=== PATIENT | male | born 2000 | race Caucasian/White ===

== ENCOUNTER 2021-02-04 16:07 | Emergency (ER) | payer MEDICAID, SELFPAY ==
--- NOTE | 2021-02-04 | ECG_ITS ---
Test Reason : CHEST PAIN Blood Pressure : / mmHG Vent. Rate : 061 BPM Atrial Rate : 061 BPM P-R Int : 148 ms QRS Dur : 082 ms QT Int : 372 ms P-R-T Axes : 051 018 038 degrees QTc Int : 374 ms Normal sinus rhythm Normal ECG No previous ECGs available Referred By: Generic ED Physician Electronically Signed By:SANTHOSH CLEMENTS MD
[2021-02-04 16:11] VITALS: BP 141/82; PULSE 91; RESP 16; TEMP 36.8; O2SAT 99; BMI 39.5
== END 2021-02-04 16:41 | disposition left against medical advice (07) ==
PROVIDERS: Emergency Provider Emergency Medicine; PCP Pediatrics Adolescent Medicine
DX: R07.9 Chest pain, unspecified (principal); R00.1 Bradycardia, unspecified
CPT/HCPCS: 93005; 99283

== ENCOUNTER 2023-03-24 05:43 | Emergency (ER) | payer OTHER, SELFPAY ==
[2023-03-24 05:54] VITALS: BP 144/83; PULSE 78; RESP 18; TEMP 36.8; O2SAT 98; BMI 35.9
--- OUTSIDE RECORDS SUMMARY | 2023-03-24 06:05 | XMS_ITS | Continuity of Care Document ---
Author Name Unknown Organization [facility] Address [address] [place] [address]- Care Team Providers Care Electrostatic Painter Name Role Phone Jameson LADD, Shanell Manriquez Primary Care Physici an Encounter [facility] Date(s): 05/10/20 - 06/09/20 [facility] [address] [place] [address]- [facility] Allergies, Adverse Reactions, Alerts Substance Reaction Severity Status Tylenol Active Dust Active Medications naproxen 500 mg oral tablet 1 tablet = 500 mg, By Mouth, 2 times a day, PRN as needed for pain, # 40 tablet, 0 Refills, Maintenance, 06/24/16 18:59:47, Tablet Start Date: 06/24/16 Status: Ordered Problem List Condition Effective Dates Status Health Status Inform ant Childhood obesity(Confirmed) Active Fatty liver(Confirmed) Active Gynecomastia(Confirmed) Active Vitamin D deficiency(Confirmed) Active Social History Social History Type Response Smoking Status Never smoker entered on: 06/15/15 Sex
--- OUTSIDE RECORDS SUMMARY | 2023-03-24 06:05 | XMS_ITS | Continuity of Care Document ---
Author Name Unknown Organization [facility] Address [address] [place] [address]- Care Team Providers Care Religious Education Teacher Name Role Phone Desirae BIRCH, Isaura Garcia Primary Care Physician [place] [facility] [place] - 12/[place]/21 [facility] [address] [place] [id number] Attending Physician: Kentrell Blank Admitting Physician: AdmtrKentrell Referring Physician: AdmtrKentrell Allergies, Adverse Reactions, Alerts Substance Reaction Severity Status Tylenol Active Dust Active Immunizations Given and Recorded Vaccine Date Status Refusal Reason tetanus/diphtheria/pertussis, acel(Tdap) 12/03/21 Given Medications albuterol CFC free 90 mcg/inh inhalation aerosol 1, puffs, Inhalation, 4 times a day, PRN, # 18 Gm, Refills 0, Tot. Refills 0, Maintenance, 12/03/2214:35:00 EST, Aerosol, Route to Pharmacy Electronically, [id number], [facility]/pharmacy #[id number], 169.5, cm, 12/03/21 14:47:00 EST, He... Start Date: 12/03/21 Status: Ordered Flovent HFA 110 mcg/inh inhalation aerosol 2 puffs, Inhalation, 2 times a day, # 12 Gm, 0 Refills, Maintenance, 12/03/21 15:35:00 EST, Aerosol, [id number], Partial fill upon patient request if the prescription is for a schedule II opioid drug., 169.5, cm, 12/03/21 14:47:00 EST, Height Start Date: 12/03/21 Status: Ordered Magnesium Amino Acids Chelate By Mouth, 0 Refills, Maintenance, 08/03/20 8:56:00 EDT Start Date: 08/03/20 Status: Ordered MiraLax oral powder for reconstitution = 17 Gm, By Mouth, Daily, for 30 days, dissolve in water before taking, # 510 Gm, 0 Refills, Acute 01/02/22 15:36:00 EDT, 12/03/21 15:36:00 EST, REC Powder, [facility]/pharmacy #[id number], Partial fill upon patient request if the prescription is for a schedule II... Start Date: 12/03/21 Stop Date: 01/02/22 Status: Ordered naproxen 500 mg oral tablet 1 tablet = 500 mg, By Mouth, 2 times a day, PRN as needed for pain, # 40 tablet, 0 Refills, Maintenance, 06/24/16 18:59:47, Tablet Start Date: 06/24/16 Status: Ordered Problem List Condition Effective Dates Status Health Status Inform ant Childhood obesity(Confirmed) Active Fatty liver(Confirmed) Active Gynecomastia(Confirmed) Active Obese class II(Confirmed) Active Vitamin D deficiency(Confirmed) Active Social History Social History Type Response Smoking Status Never (less than 100 in lifetime) entered on: 12/03/21 Sex
--- OUTSIDE RECORDS SUMMARY | 2023-03-24 06:05 | XMS_ITS | Continuity of Care Document ---
Author Name Unknown Organization [facility] Adult Medicine Address [address] [place] [address]- Care Team Providers Care Executive Receptionist Name Role Phone Desirae BIRCH, Isaura Garcia Primary Care Physician Encounter [facility] [place] Date(s): 11/27/21 - 12/29/21 [facility] [address] [place] [id number] Attending Physician: Jay Reeves MD Admitting Physician: Jay Reeves MD Allergies, Adverse Reactions, Alerts Substance Reaction Severity Status Tylenol Active Dust Active Immunizations Given and Recorded Vaccine Date Status Refusal Reason tetanus/diphtheria/pertussis, acel(Tdap) 12/03/21 Given Medications albuterol CFC free 90 mcg/inh inhalation aerosol 1, puffs, Inhalation, 4 times a day, PRN, # 18 Gm, Refills 0, Tot. Refills 0, Maintenance, 12/03/2214:35:00 EST, Aerosol, Route to Pharmacy Electronically, [id number], [facility]/pharmacy #[id number], 169.5, cm, 12/03/21 14:47:00 EST, He... [...] 15:36:00 EDT, 12/03/21 15:36:00 EST, REC Powder, [facility]/pharmacy #[id number], Partial fill upon patient request if the [...]
--- OUTSIDE RECORDS SUMMARY | 2023-03-24 06:05 | XMS_ITS | Continuity of Care Document ---
Author Name Unknown Organization [facility] Address [address] [place] [address]- Care Team Providers Care Advertising Coordinator Name Role Phone Desirae BIRCH, Isaura Garcia Primary Care Physician [phone] Encounter [facility] [place] Date(s): 11/27/21 - 12/27/21 [facility] [address] [place] [id number] Allergies, Adverse Reactions, Alerts Substance Reaction Severity Status Tylenol Active Dust Active Immunizations Given and Recorded Vaccine Date Status Refusal Reason tetanus/diphtheria/pertussis, acel(Tdap) 12/03/21 Given Medications albuterol CFC free 90 mcg/inh inhalation aerosol 1, puffs, Inhalation, 4 times a day, PRN, # 18 Gm, Refills 0, Tot. Refills 0, Maintenance, 12/03/2214:35:00 EST, Aerosol, Route to Pharmacy Electronically, [id number], [facility]/pharmacy #[id number], 169.5, cm, 12/03/21 14:47:00 EST, He... [...] EDT, 12/03/21 15:36:00 EST, REC Powder, [facility]/pharmacy #[id number], Partial fill upon patient request if the [...]
--- OUTSIDE RECORDS SUMMARY | 2023-03-24 06:05 | XMS_ITS | Continuity of Care Document ---
Author Name Unknown Organization [facility] Address [address] [place] [address]- Care Team Providers Care Database Administration Associate Name Role Phone Desirae BIRCH, Isaura Garica Primary Care Physician En[place] [facility] [place] Date(s): 12/03/21 - 01/31/[address] [address]- Attending Physician: Theresa Valenzuela MD Admitting Physician: Theresa Valenzuela MD Referring Physician: Bull Olvera NP Allergies, Adverse Reactions, Alerts Substance Reaction Severity Status Tylenol Active Dust Active Immunizations Given and Recorded Vaccine Date Status Refusal Reason tetanus/diphtheria/pertussis, acel(Tdap) 12/03/21 Given Medications Flovent HFA 110 mcg/inh inhalation aerosol 2 puffs, Inhalation, 2 times a day, # 12 each, 2 Refills, [facility] 55827, 169.5, cm, 12/03/21 14:47:00 EST, Height Start Date: 01/01/22 Status: Ordered Magnesium Amino Acids Chelate By Mouth, 0 Refills, Maintenance, 08/03/20 8:56:00 EDT Start Date: 08/03/20 Status: Ordered naproxen 500 mg oral tablet 1 tablet = 500 mg, By Mouth, 2 times a day, PRN as needed for pain, # 40 tablet, 0 Refills, Maintenance, 06/24/16 18:59:47, Tablet Start Date: 06/24/16 Status: Ordered ProAir HFA 90 mcg/inh inhalation aerosol with adapter 1, puffs, Inhalation, 4 times a day, PRN, # 8.5 each, Refills 1, Route to Pharmacy Electronically, [id number], [facility], 169.5, cm, 12/03/21 14:47:00 EST, Height Start Date: 01/01/22 Status: Ordered Problem List Condition Effective Dates Status Health Status Inform ant Childhood obesity(Confirmed) Active Fatty liver(Confirmed) Active Gynecomastia(Confirmed) Active Obese class II(Confirmed) Active Vitamin D deficiency(Confirmed) Active Social History Social History Type Response Smoking Status Never (less than 100 in lifetime) entered on: 12/03/21 Sex
--- OUTSIDE RECORDS SUMMARY | 2023-03-24 06:05 | XMS_ITS | Continuity of Care Document ---
Author Name Unknown Organization [facility] ter Address [address] [place] [address]- Care Team Providers Care Excavation Laborer Name Role Phone Jameson LADD, Shanell Manriquez Primary Care Physici an En[place] [facility] [place] Date(s): 10/05/19 - 10/05/[address] [address]- [facility] Attending Physician: Not on Staff, Attending MD Allergies, Adverse Reactions, Alerts Substance Reaction [...]
--- OUTSIDE RECORDS SUMMARY | 2023-03-24 06:05 | XMS_ITS | Continuity of Care Document ---
Author Name Unknown Organization [facility] ter Address [address] [place] [address]- Care Team Providers Care Heavy Truck Mechanic Name Role Phone Desirae BIRCH, Isaura Garcia Primary Care Physician [phone] Encounter [facility] [place] Date(s): 12/04/21 - 02/01/[address] [address] Attending Physician: Bull Olvera NP Admitting Physician: Bull Olvera NP Referring Physician: Bull Olvera NP Allergies, Adverse Reactions, Alerts Substance Reaction Severity Status Tylenol Active Dust Active Immunizations Given and Recorded Vaccine Date Status Refusal Reason tetanus/diphtheria/pertussis, acel(Tdap) 12/03/21 Given Medications Flovent HFA 110 mcg/inh inhalation aerosol 2 puffs, Inhalation, 2 times a day, # 12 each, 2 Refills, [facility] 07276, 169.5, cm, 12/03/21 14:47:00 EST, Height Start [...] each, Refills 1, Route to Pharmacy Electronically, [id number], [facility], 169.5, cm, 12/03/21 14:47:00 EST, Height Start Date: 01/01/22 Status: Ordered Problem List Condition Effective Dates Status Health Status Inform ant Childhood obesity(Confirmed) Active Fatty liver(Confirmed) Active Gynecomastia(Confirmed) Active Obese class II(Confirmed) Active Vitamin D deficiency(Confirmed) Active Social History Social History Type Response Smoking Status Never (less than 100 in lifetime) entered on: 12/03/21 Sex
--- OUTSIDE RECORDS SUMMARY | 2023-03-24 06:05 | XMS_ITS | Continuity of Care Document ---
Author Name Unknown Organization [facility] ter Address [address] [place] [address]- Care Team Providers Care Mr Teacher Name Role Phone Desirae BIRCH, Isaura Garcia Primary Care Physician [place] [facility] [place] - 02/23/[address] [address] Attending Physician: Bull Olvera NP Admitting Physician: Bull Olvera NP Referring Physician: Bull Olvera NP Allergies, Adverse Reactions, Alerts Substance Reaction Severity Status Tylenol Active Dust Active Immunizations Given and Recorded Vaccine Date Status Refusal Reason tetanus/diphtheria/pertussis, acel(Tdap) 12/03/21 Given Medications Flovent HFA 110 mcg/inh inhalation aerosol 2 puffs, Inhalation, 2 times a day, # 12 each, 2 Refills, [facility] 92814, 169.5, cm, 12/03/21 14:47:00 EST, Height Start [...] each, Refills 1, Route to Pharmacy Electronically, [id number], [facility], 169.5, cm, 12/03/21 14:47:00 EST, Height Start Date: 01/01/22 Status: Ordered Problem List Condition Effective Dates Status Health Status Inform ant Childhood obesity(Confirmed) Active Fatty liver(Confirmed) Active Gynecomastia(Confirmed) Active Obese class II(Confirmed) Active Vitamin D deficiency(Confirmed) Active Social History Social History Type Response Smoking Status Never (less than 100 in lifetime) entered on: 12/03/21 Sex
--- OUTSIDE RECORDS SUMMARY | 2023-03-24 06:05 | XMS_ITS | Continuity of Care Document ---
Author Name Unknown Organization [facility] Address [address] [place] [address]- Care Team Providers Care Laborer Car Barn Name Role Phone Desirae BIRCH, Isaura Garcia Primary Care Physician Encounter [facility] [place] Date(s): 12/03/21 - 02/02/[address] [address]- Attending Physician: Elvis Cortes OD Admitting Physician: Elvis Cortes OD Referring Physician: Bull Olvera NP Allergies, Adverse Reactions, Alerts Substance Reaction Severity Status Tylenol Active Dust Active Immunizations Given and Recorded Vaccine Date Status Refusal Reason tetanus/diphtheria/pertussis, acel(Tdap) 12/03/21 Given Medications Flovent HFA 110 mcg/inh inhalation aerosol 2 puffs, Inhalation, 2 times a day, # 12 each, 2 Refills, [facility] 23927, 169.5, cm, 12/03/21 14:47:00 EST, Height Start [...] each, Refills 1, Route to Pharmacy Electronically, [id number], [facility] 57164, 169.5, cm, 12/03/21 14:47:00 EST, Height Start Date: 01/01/22 Status: Ordered Problem List Condition Effective Dates Status Health Status Inform ant Childhood obesity(Confirmed) Active Fatty liver(Confirmed) Active Gynecomastia(Confirmed) Active Obese class II(Confirmed) Active Vitamin D deficiency(Confirmed) Active Social History Social History Type Response Smoking Status Never (less than 100 in lifetime) entered on: 12/03/21 Sex
--- OUTSIDE RECORDS SUMMARY | 2023-03-24 06:05 | XMS_ITS | Continuity of Care Document ---
Author Name Unknown Organization [facility] Address [address] [place] [address]- Care Team Providers Care Life Management Teacher Name Role Phone Desirae BIRCH, Isaura Garcia Primary Care Physician Encounter [facility] [place] Date(s): 01/01/22 - 01/31/[address] [address]- Attending Physician: AdmKentrell [place] Admitting Physician: Admtr, Ar8 Referring Physician: Admtr, Ar8 Allergies, Adverse Reactions, Alerts Substance Reaction Severity Status Tylenol Active Dust Active Immunizations Given and Recorded Vaccine Date Status Refusal Reason tetanus/diphtheria/pertussis, acel(Tdap) 12/03/21 Given Medications Flovent HFA 110 mcg/inh inhalation aerosol 2 puffs, Inhalation, 2 times a day, # 12 each, 2 Refills, [facility] 31618, 169.5, cm, 12/03/21 14:47:00 EST, Height Start [...] each, Refills 1, Route to Pharmacy Electronically, [id number], [facility] 02783, 169.5, cm, 12/03/21 14:47:00 EST, Height Start Date: 01/01/22 Status: Ordered Problem List Condition Effective Dates Status Health Status Inform ant Childhood obesity(Confirmed) Active Fatty liver(Confirmed) Active Gynecomastia(Confirmed) Active Obese class II(Confirmed) Active Vitamin D deficiency(Confirmed) Active Social History Social History Type Response Smoking Status Never (less than 100 in lifetime) entered on: 12/03/21 Sex
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
[2023-03-24] MEDS: Ibuprofen 800 MG TABLET PO (06:15)
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
== END 2023-03-24 06:57 | disposition home or self-care (01) ==
PROVIDERS: Emergency Provider Emergency Medicine Emergency Medical Services; PCP Pediatrics Adolescent Medicine
DX: Z04.1 Encounter for examination and observation following transport accident (principal)
CPT/HCPCS: 99283; 99284

== ENCOUNTER 2023-08-22 16:33 | Emergency (ER) | payer OTHER, SELFPAY ==
[2023-08-22 17:30] VITALS: BP 141/85; PULSE 54; RESP 18; TEMP 36.3; O2SAT 97; BMI 34.5
--- NOTE | 2023-08-22 17:30 | ED.ABDPAIN ---
HPI - Abdominal Pain General Chief Complaint: Abdominal Pain Stated Complaint: Vomiting 2x days Time Seen by Provider: 08/22/23 17:46 Source: patient Mode of arrival: ambulatory Limitations: no limitations History of Present Illness HPI narrative: 22-year-old male who presents emergency department for evaluation of vomiting, onset 2 days ago after eating a subway sandwich. Patient states that today his vomiting has gotten worse. Patient states that today he has been vomiting and retching. Patient did vomit up blood earlier today. At triage she vomited bilious material that was blood tinged, proximally 500 cc. Patient states he is having severe pain any points to his throat and epigastric area when asked to localize the pain. Describes the pain is a burning sensation. The pain is 10/10. Patient states he has been constipated has not had any diarrhea. Patient denies smoking marijuana. Patient was evaluated and triaged brought back to a room, when he went into the room the patient is retching, he did vomit bilious material that is red. He appears to be in distress secondary to his throat and abdominal pain. Related Data Previous Rx's Medication Instructions Recorded cyclobenzaprine 5 mg tablet 5 mg PO TID PRN muscle spasm 7 03/24/23 days #21 tabs omeprazole 20 mg capsule,delayed 20 mg PO DAILY 30 days #30 caps 08/22/23 release ondansetron 4 mg disintegrating 4 mg PO Q6-8H PRN nausea and 08/22/23 tablet vomiting #14 tabs Allergies Allergy/AdvReac Type Severity Reaction Status Date / Time acetaminophen [From TYLENOL] Allergy Mild RASH Verified 08/22/23 17:30 Review of Systems Review of Systems Yes all other systems are reviewed and are negative [facility] Past Medical History [facility] Narrative: Past medical history: None. Surgical history: None. Social history: Patient denies tobacco, alcohol and drug use specifically denies smoking marijuana. Medical History No known health problems Social History Social History Alcohol intake: never Smoked in Last 30 Days: No Use of substances other than those prescribed or required for medical reasons: No Advance Directives: No Advance Directives Information Provided: No Physical Exam ED Vital Signs: Vital Signs - 24 hr 08/22/23 17:30 Temperature 97.4 F Pulse Rate 54 Respiratory Rate 18 Blood Pressure 141/85 H Pulse Oximetry 97 Oxygen Delivery Method Room Air BMI result Body Mass Index 34.5 Vital signs did reveal an elevated blood pressure of 141 over 85 with a low heart rate of 54 pain Exam General: Awake, alert, appears to be in distress secondary to retching and vomiting Head: Normocephalic, atraumatic EENT: PERRL, Lids normal, sclera normal, conjunctiva normal, nose normal , ears normal, throat without erythema or exudates Neck: Supple, no adenopathy, no trachea midline or C-spine tenderness Lung: breath sounds symmetric, no wheezing, rales or rhonchi Chest: symmetric movement, nontender Heart: regular rate and rhythm, normal S1, S2 no murmurs or rubs Abdomen: soft, moderate epigastric tenderness nondistended, normal bowel sounds Back: no vertebral tenderness, no CVAT Extremities: no deformities, moves all extremities symmetrically Skin: no rashes, no lesion, normal color and warmth Neuro: Awake, alert, oriented, normal speech, cranial nerves intact, moves all extremities symmetrically Psych: Anxious, cooperative Course Course Course Narrative: This is an RME: Additional HPI, ROS, PE not included below will be deferred to primary provider. Patient is a 22-year-old male who presents emergency department for evaluation of vomiting, onset 2 days ago after eating a subway sandwich. Increased vomiting since earlier today, cant keep down and solids or liquids, this evening with dark red bloody emesis, visualized upon arrival approx 500mL, has pain with swallowing, Epigastric pain, constipated x 1 week. Denies drug or alcohol usage. Denies history of this in the past. Plan: labs, ondansetron, spokewith transmitter engineer in chargeCesia, Patient to be brought back to a room for upper GIB Medical Decision Making Medical Decision Making MDM Narrative: 22-year-old male who presents emergency department for evaluation of vomiting, onset 2 days ago after eating a subway sandwich, patient has hematemesis this morning, he continues to retch and vomit and in the emergency department he had 500 cc of blood tinged emesis. He is complaining of throat pain and epigastric pain. Patient was only retching here in the emergency department, emesis was bilious and blood tinged. Exam did reveal epigastric tenderness. Following evaluation was ordered: CBC, CMP, lipase, ethanol level, urine drug screen, PT/INR, PTT, urinalysis. I ordered normal saline IV x1 L, morphine 4 mg IV for his pain, regular 10 mg and Benadryl 50 mg IV for his nausea and vomiting. 19:29 Patient's laboratory evaluation revealed no significant anemia which is reassuring, electrolyte abnormalities are consistent with vomiting. Patient's tox screen was positive for THC. Symptoms are most likely caused by a viral gastritis however cannabis hyperemesis syndrome needs be considered. Patient may also have a small Tory-Holt tear secondary to his severe retching. Patient was given a GI cocktail of Maalox, viscous lidocaine and with improvement of his symptoms as well. Patient was discharged home with prescriptions for Zofran ODT 4 mg every 6-8 hours as needed for nausea and vomiting and Prilosec 20 mg once a day for 1 month. He was advised to stay on a lilliana diet for the next 24 hours, he was given printed and verbal instructions and discharged home. Differential Diagnosis Differential Diagnoses: The differential diagnosis associated with the presentation includes Differential diagnosis includes was not limited to upper GI bleed, gastritis, esophagitis, Tory-Holt tear, esophageal perforation, cannabis hyperemesis syndrome, anemia, electrolyte abnormality Admission/Observation Consideration of admission/observation: Escalation of care including admission/observation considered Lab Data MDM Lab Attestation statement: I reviewed the patient's lab results. My interpretation patient's laboratory evaluation as follows: WBC elevated 14,700. No anemia with an H&H of 18 and 51.8. Potassium low 3.2. Bicarb high 36 chloride low 93. LFTs normal. Lipase normal. ETOH below detectable limits. Urine tox screen positive for THC. 08/22/23 18:07 08/22/23 18:07 Labs: Lab Results 08/22/23 08/22/23 Range/Units 18:07 18:14 WBC 14.7 H (4.8-10.8) X10*3/uL RBC 6.45 H (4.60-5.80) X10*6/uL Hgb 18.0 (14.0-18.0) g/dl Hct 51.8 (42.0-52.0) % MCV 80.3 (80.0-98.0) fL MCH 27.9 (27.0-33.0) pg MCHC 34.7 (31.0-36.0) g/dl RDW 12.4 (11.0-16.0) % Plt Count 254 (160-400) X10*3/uL MPV 9.6 (9.4-12.4) fL Immature Gran % (Auto) 0.1 (0.0-0.4) % Neut % (Auto) 79.9 H (45-73) % Lymph % (Auto) 12.2 L (20-40) % Wayne % (Auto) 7.3 (2-11) % Eos % (Auto) 0.2 (0-4) % Baso % (Auto) 0.3 (0-2) % Lymph # (Auto) 1.8 (1.2-4.9) X10*3/uL Wayne # (Auto) 1.1 (0.1-1.2) X10*3/uL Eos # (Auto) 0.0 (0.0-0.4) X10*3/uL Baso # (Auto) 0.0 (0.0-0.2) X10*3/uL Abs Immat Gran (auto) 0.02 (0.00-0.03) X10*3/uL Absolute Neuts (auto) 11.8 H (2.0-8.3) x10*3/uL Absolute Nucleated RBC 0.000 (0.0-0.012) X10*3/uL Nucleated RBC % (auto) 0.0 (0.0-0.2) /100WBC PT 11.9 (11.1-13.3) SEC INR 1.0 (0.9-1.1) APTT 28.9 (26.0-36.4) SEC Sodium 142 (135-145) mmol/L Potassium 3.2 L (3.3-5.1) mmol/L Chloride 93 L (96-108) mmol/L Carbon Dioxide 36 H (22-29) mmol/L Anion Gap 16 (12-20) BUN 12 (9-16) mg/dL Creatinine 1.09 (0.5-1.4) mg/dL Estim Creat Clear Calc 122.6 Estimated GFR > 60 Random Glucose 115 (60-115) mg/dL Calcium 10.7 H (8.4-10.2) mg/dL Total Bilirubin 0.9 (0.0-1.0) mg/dL AST 26 (5-37) U/L ALT 29 (0-40) U/L Alkaline Phosphatase 88 (39-117) U/L Total Protein 9.2 H (6.5-8.0) g/dL Albumin 4.9 (3.5-5.0) g/dL Lipase 7 L (8-78) U/L Urine Color Yellow Urine Appearance Clear Urine pH 8.5 (5.0-9.0) Ur Specific [place] 1.020 (1.005-1.025) Urine Protein 30 (1+) H (Neg-Trace) mg/dL Urine Glucose (UA) Negative (Negative) mg/dL Urine Ketones 15 (Negative) mg/dL Urine Blood Negative (Negative) Urine Nitrite Negative (Negative) Ur Leukocyte Esterase Negative (Negative) Urine RBC 0-2 (0-2) /HPF Urine WBC 0-5 (0-5) /HPF Ur Squamous Epith Cells 0-2 (0-2) /HPF Urine Bacteria None Seen (None Seen) Hyaline Casts 0-2 (0-2) /LPF Urine Opiates Screen Not Detected (Not Detect) Urine Fentanyl Screen Not Detected (Not Detect) Ur Barbiturates Screen Not Detected (Not Detect) Ur Phencyclidine Scrn Not Detected (Not Detect) Ur Amphetamines Screen Not Detected (Not Detect) U Benzodiazepines Scrn Not Detected (Not Detect) Urine Cocaine Screen Not Detected (Not Detect) U Marijuana (THC) Screen POSITIVE H (Not Detect) Ethyl Alcohol < 10 mg/dL Blood Type O Positive Antibody Screen NEGATIVE Independent Historian Clinical information obtained from an independent historian. History obtained from or confirmed by: Spouse Prescription Management I considered prescription management with: Other (Antiemetics, H2 shantell) Medications Administered Discontinued Medications Generic Name Dose Route Start Last Admin Trade Name Freq PRN Reason Stop Dose Admin Diphenhydramine HCl 50 mg 08/22/23 17:50 08/22/23 18:14 Diphenhydramine Hcl 50 Mg/Ml Vial IVPUSH 08/22/23 17:51 50 mg ONCE STA Administration Sodium Chloride 1,000 mls @ 999 mls/hr 08/22/23 17:50 08/22/23 18:15 Ns IV 08/22/23 18:50 999 mls/hr .Q1H1M STA Administration Metoclopramide HCl 10 mg 08/22/23 17:50 08/22/23 18:14 Metoclopramide Hcl 10 Mg/2 Ml Vial IVPUSH 08/22/23 17:51 10 mg ONCE STA Administration Morphine Sulfate 4 mg 08/22/23 17:50 08/22/23 18:14 Morphine Sulfate 4 Mg/Ml Cartridge IVPUSH 08/22/23 17:51 4 mg ONCE STA Administration Protocol Ondansetron HCl 4 mg 08/22/23 17:31 08/22/23 17:35 Ondansetron Odt 4 Mg Tab.Rapdis TRANSLINGU 08/22/23 17:32 4 mg ONCE ONE Administration Discharge Plan Discharge Clinical Impression: Tory-Holt tear Gastritis Qualifiers: Gastritis type: unspecified gastritis Chronicity: acute Gastritis bleeding: with bleeding Qualified Code(s): K29.01 - Acute gastritis with bleeding Vomiting Qualifiers: Nausea presence: with nausea Patient Disposition: Home, Self-Care Instructions: Gastritis (ED) Additional Instructions: Your blood work was normal. Your symptoms are consistent with inflammation of your stomach (gastritis) Take Zofran ODT 4 mg pills, 1 pill dissolved in your mouth every 8 hours as needed for nausea and vomiting. Take Prilosec (omeprazole) 20 mg pills, 1 pill once a day for 1 month. This medication shuts off your acid production and lets the inflammation in your stomach and esophagus heal. For the next 24 hours, stay on a LILLIANA diet (bananas, rice, applesauce, tea and toast). Follow-up with your doctor in 2 days. Please return to the emergency department if your symptoms get worse or if you develop any symptoms that are concerning to you. Prescriptions: New omeprazole 20 mg capsule,delayed release(DR/EC) 20 mg PO DAILY 30 Days Qty: 30 0RF ondansetron 4 mg tablet,disintegrating 4 mg PO Q6-8H PRN (Reason: nausea and vomiting) Qty: 14 0RF No Action cyclobenzaprine 5 mg tablet 5 mg PO TID PRN (Reason: muscle spasm) 7 Days Qty: 21 0RF
[2023-08-22] MEDS: Ondansetron ODT 4 MG TAB.RAPDIS TRANSLINGU (17:35)
[2023-08-22 18:14] LABS: MANUAL DIFF FLAG NO
[2023-08-22] MEDS: Morphine Sulfate 4 MG/ML CARTRIDGE IVPUSH (18:14)
[2023-08-22] MEDS: Metoclopramide HCl 10 MG/2 ML VIAL IVPUSH (18:14)
[2023-08-22] MEDS: diphenhydrAMINE HCL 50 MG/ML VIAL IVPUSH (18:14)
[2023-08-22 18:15] LABS: Basophils Percent Auto 0.3 % (0-2); Eosinophils Percent Auto 0.2 % (0-4); Hematocrit 51.8 % (42.0-52.0); Imm Gran Abs Auto 0.02 X10*3/uL (0.00-0.03); Imm Gran Pct Auto 0.1 % (0.0-0.4); Lymphocytes Absolute Auto 1.8 X10*3/uL (1.2-4.9); Lymphocytes Percent Auto 12.2 % (20-40); Mean Corpuscular HGB Conc 34.7 g/dl (31.0-36.0); Mean Corpuscular Hemoglobin 27.9 pg (27.0-33.0); Mean Corpuscular Volume 80.3 fL (80.0-98.0); Mean Platelet Volume 9.6 fL (9.4-12.4); Monocytes Absolute Auto 1.1 X10*3/uL (0.1-1.2); Monocytes Percent Auto 7.3 % (2-11); Neutrophils Absolute Auto 11.8 x10*3/uL (2.0-8.3); Neutrophils Percent Auto 79.9 % (45-73); Platelet Count 254 X10*3/uL (160-400); Red Blood Count 6.45 X10*6/uL (4.60-5.80); Red Cell Distribution Width 12.4 % (11.0-16.0); White Blood Count 14.7 X10*3/uL (4.8-10.8)
[2023-08-22] MEDS: 0.9 % Sodium Chloride 1,000 ML 999 ML IV (18:15)
[2023-08-22 18:20] LABS: Prothrombin Time 11.9 SEC (11.1-13.3)
[2023-08-22 18:21] LABS: Appearance Urine Clear; Color Urine Yellow; Glucose Urine UA Negative (Negative); Leukocyte Esterase Urine Negative (Negative); Nitrite Urine Negative (Negative); PH 8.5 (5.0-9.0); UMIC TRIGGER UACC YES; Urine Blood Negative (Negative); Urine Ketones 15 mg/dL (Negative); Urine Protein 30 (1+) mg/dL (Neg-Trace)
--- NOTE | 2023-08-22 18:22 | PC.NURSE ---
Patidoroteon reports has been vomiting x 2 days, unable to keep food down. reports he fell in the shower 3 days ago and he started feeling nauseous after the fall. Patient denies sob or chest pain. PERRLA. Patient vomited stomach bile x 3 in ER.
[2023-08-22 18:23] LABS: Partial Thromboplastin Time 28.9 SEC (26.0-36.4)
[2023-08-22 18:25] LABS: Bacteria Urine None Seen (None Seen); Hyaline Casts Urine 0-2 /LPF (0-2); RBC Urine 0-2 /HPF (0-2); Squamous Epithelial Cell Urine 0-2 /HPF (0-2); WBC Urine 0-5 /HPF (0-5)
[2023-08-22 18:27] LABS: Amphetamine Screen Urine Not Detected (Not Detect); Barbiturates, Urine Not Detected (Not Detect); Benzodiazepines Screen Urine Not Detected (Not Detect); Cannabinoid Screen Urine POSITIVE (Not Detect); Cocaine Screen Urine Not Detected (Not Detect); Fentanyl, urine Not Detected (Not Detect); Opiate Screen Urine Not Detected (Not Detect); Phencyclidine Screen Urine Not Detected (Not Detect)
[2023-08-22 18:30] LABS: Ethanol < 10 mg/dL; Lipase 7 U/L (8-78)
[2023-08-22 18:32] LABS: Alanine Aminotransferase 29 U/L (0-40); Albumin Level 4.9 g/dL (3.5-5.0); Alkaline Phosphatase 88 U/L (39-117); Anion Gap 16 (12-20); Aspartate Amino Transferase 26 U/L (5-37); Bilirubin Total 0.9 mg/dL (0.0-1.0); Blood Urea Nitrogen 12 mg/dL (9-16); Calcium 10.7 mg/dL (8.4-10.2); Carbon Dioxide 36 mmol/L (22-29); Chloride 93 mmol/L (96-108); Creatinine Clr Calc Pharmacy 122.6; Estimated Glomerular Filt Rate > 60; Glucose Random 115 mg/dL (60-115); Potassium 3.2 mmol/L (3.3-5.1); Sodium 142 mmol/L (135-145); Total Protein 9.2 g/dL (6.5-8.0)
[2023-08-22] MEDS: Magnesium Hydrox/Alum Hydrox 30 ML ORAL.SUSP PO (19:58)
[2023-08-22] MEDS: Lidocaine HCl Viscous 2 % 15 ML SOLUTION 10 ML PO (19:58)
[2023-08-22] MEDS: PHENobarb/Hyoscy/Atropine/Scop 10 ML ELIXIR PO (19:59)
== END 2023-08-22 20:13 | disposition home or self-care (01) ==
PROVIDERS: Nurse Practitioner Family; Emergency Provider Emergency Medicine Emergency Medical Services
DX: K29.01 Acute gastritis with bleeding (principal); K22.6 Gastro-esophageal laceration-hemorrhage syndrome; R11.2 Nausea with vomiting, unspecified; Z79.899 Other long term (current) drug therapy
CPT/HCPCS: 36415; 80053; 80307; 81001; 83690; 85025; 85610; 85730; 86850; 86900; 86901; 96361; 96374; 96375; 99284; J1200; J2270; J2765

== ENCOUNTER 2024-06-08 21:02 | Emergency (ER) | payer OTHER, SELFPAY ==
--- NOTE | 2024-06-08 | ECG_ITS ---
Test Reason : chest pain Blood Pressure : / mmHG Vent. Rate : 058 BPM Atrial Rate : 058 BPM P-R Int : 158 ms QRS Dur : 088 ms QT Int : 376 ms P-R-T Axes : 041 -05 032 degrees QTc Int : 369 ms Sinus bradycardia with sinus arrhythmia Otherwise normal ECG When compared with ECG of 04-FEB-2021 16:25, No significant change was found Referred By: Generic ED Physician Electronically Signed By:REAGAN LOPEZ
[2024-06-08 21:19] VITALS: BP 130/58; PULSE 66; RESP 18; TEMP 36.7; O2SAT 99; BMI 39.8
[2024-06-08 21:38] LABS: MANUAL DIFF FLAG NO
[2024-06-08 21:39] LABS: Basophils Absolute Auto 0.1 X10*3/uL (0.0-0.2); Basophils Percent Auto 0.6 % (0-2); Eosinophils Absolute Auto 0.3 X10*3/uL (0.0-0.4); Eosinophils Percent Auto 3.3 % (0-4); Hematocrit 43.4 % (42.0-52.0); Hemoglobin 14.8 g/dl (14.0-18.0); Imm Gran Abs Auto 0.01 X10*3/uL (0.00-0.03); Imm Gran Pct Auto 0.1 % (0.0-0.4); Lymphocytes Absolute Auto 3.1 X10*3/uL (1.2-4.9); Lymphocytes Percent Auto 39.2 % (20-40); Mean Corpuscular HGB Conc 34.1 g/dl (31.0-36.0); Mean Corpuscular Hemoglobin 28.8 pg (27.0-33.0); Mean Corpuscular Volume 84.4 fL (80.0-98.0); Mean Platelet Volume 9.7 fL (9.4-12.4); Monocytes Absolute Auto 0.8 X10*3/uL (0.1-1.2); Monocytes Percent Auto 10.7 % (2-11); Neutrophils Absolute Auto 3.6 x10*3/uL (2.0-8.3); Neutrophils Percent Auto 46.1 % (45-73); Platelet Count 201 X10*3/uL (160-400); Red Blood Count 5.14 X10*6/uL (4.60-5.80); Red Cell Distribution Width 13.2 % (11.0-16.0); White Blood Count 7.9 X10*3/uL (4.8-10.8)
[2024-06-08 21:59] LABS: Anion Gap 7 (12-20); Blood Urea Nitrogen 15 mg/dL (9-16); Calcium 8.7 mg/dL (8.4-10.2); Carbon Dioxide 30 mmol/L (22-29); Chloride 110 mmol/L (96-108); Creatinine Clr Calc Pharmacy 118.7; Estimated Glomerular Filt Rate > 60; Glucose Random 96 mg/dL (60-115); Potassium 4.1 mmol/L (3.3-5.1); Sodium 143 mmol/L (135-145)
[2024-06-08 22:08] LABS: Troponin-I High Sensitivity < 2.7 ng/L (<3.5-35.0)
--- NOTE | 2024-06-08 22:57 | ED_ITS ---
HPI - Chest Pain General Chief Complaint: Chest Pain Stated Complaint: Chest pain Time Seen by Provider: 06/08/24 22:49 Source: patient and family Mode of arrival: ambulatory Limitations: no limitations History of Present Illness ED Provider: FANNIE HOFFMAN narrative: 23 yo male with no PMH no drug use here with sig life stress recently lost his cousin unexpectedly, his pet rabbit and it is the anniversary of his grandmother's . He has been crying non-stop and he is very sad. He has had chest pain all day today. No other symptoms. No hx of CAD and no risk factors. He is not on medications and has no therapist. No SI. Mom is here supporting him. He denies travel, sick contacts, hormone use. MD complaint: chest pain Onset (ago): day(s) (1) Timing of current episode: constant Prior episodes: No Onset: during rest Pain location: left chest and right chest Pain radiation: none Severity: moderate Quality: aching Relieving factors: nothing Exacerbating factors: stress Context: other (multiple life stressors) Treatment prior to arrival: none Related Data Previous Rx's ?Medication ?Instructions ?Recorded cyclobenzaprine 5 mg tablet 5 mg PO TID PRN muscle spasm 7 03/24/23 days #21 tabs omeprazole 20 mg capsule,delayed 20 mg PO DAILY 30 days #30 caps 08/22/23 release ondansetron 4 mg disintegrating 4 mg PO Q6-8H PRN nausea and 08/22/23 tablet vomiting #14 tabs hydroxyzine HCl 25 mg tablet 25 mg PO TID PRN anxiety #30 tabs 06/08/24 Allergies Allergy/AdvReac Type Severity Reaction Status Date / Time acetaminophen [From TYLENOL] Allergy Mild RASH Verified 06/08/24 21:22 Review of Systems 2 Review of Systems: Constitutional : No Weight loss, No Fever, No Chills ENT/Mouth : No sore throat, No Rhinorrhea Eyes: No Eye Pain, No Swelling Cardiovascular : pos Chest Pain, no SOB, no Dyspnea on Exertion, No Orthopnea, No Edema, No Palpitations Respiratory : No Cough, No Sputum Gastrointestinal : no Nausea, No Vomiting, No Diarrhea, No abdominal Pain, No Hematochezia, No Melena Genitourinary : No Dysuria, No Urinary Frequency Musculoskeletal : No joint pain, No Myalgias, No Joint Swelling Skin : No Skin Lesions, No rash Neuro : No Weakness, No Numbness, No Dizziness, No Headache Psych : pos Anxiety/Panic, No Depression All other systems reviewed and are negative [facility] Past Medical History Attestation statement: The following information was validated with the patient. Source: old records reviewed Medical History No known health problems Social History Social History (Updated 06/08/24 @ 23:01 by Bette Caruso DO) Alcohol intake: never Patient Tobacco Use Status: Never used Tobacco Physical Exam 2 Vital Signs: Vital Signs: Last Vital Signs Temp 98.1 F 06/08/24 21:19 Pulse 66 06/08/24 21:19 Resp 18 06/08/24 21:19 BP 130/58 L 06/08/24 21:19 Pulse Ox 99 06/08/24 21:19 O2 Del Method Room Air 06/08/24 21:19 BMI result Body Mass Index 39.8 Appearance: Alert. Oriented X3. No acute distress. Eyes: Pupils equal, round and reactive to light. ENT: Pharynx normal. Neck: Normal inspection. Neck supple. CVS: Normal heart rate and rhythm. Pulses normal. Respiratory: No respiratory distress. Breath sounds normal. Abdomen: Soft and nontender. Skin: Skin warm and dry. Normal skin color. Normal skin turgor. Extremities: No lower extremity edema. No calf ttp Neuro: Oriented X 3. No motor deficit. No sensory deficit. Medical Decision Making Medical Decision Making [facility] Narrative: 23 yo male with significant life stressors here with atypical chest pain, PERC negative, distal pulses intact - doubt dissection. He has no ACS risk factors. His EKG and 6 hr trop are negative, lungs CTAB and no infectious symptoms doubt PTX or pneumonia. At this time will refer to therapy and start on PRN atarax. Differential Diagnosis Differential Diagnoses: The differential diagnosis associated with the presentation includes atypical chest pain, anxiety, grief reaction Admission/Observation Consideration of admission/observation: Escalation of care including admission/observation considered no acute findings stable for DC Lab Data [facility] Lab Attestation statement: I reviewed the patient's lab results. 06/08/24 21:30 06/08/24 21:30 Labs: Lab Results 06/08/24 Range/Units 21:30 WBC 7.9 (4.8-10.8) X10*3/uL RBC 5.14 D (4.60-5.80) X10*6/uL Hgb 14.8 (14.0-18.0) g/dl Hct 43.4 (42.0-52.0) % MCV 84.4 (80.0-98.0) fL MCH 28.8 (27.0-33.0) pg MCHC 34.1 (31.0-36.0) g/dl RDW 13.2 (11.0-16.0) % Plt Count 201 (160-400) X10*3/uL MPV 9.7 (9.4-12.4) fL Immature Gran % (Auto) 0.1 (0.0-0.4) % Neut % (Auto) 46.1 (45-73) % Lymph % (Auto) 39.2 (20-40) % [place] % (Auto) 10.7 (2-11) % Eos % (Auto) 3.3 (0-4) % Baso % (Auto) 0.6 (0-2) % Lymph # (Auto) 3.1 (1.2-4.9) X10*3/uL [place] # (Auto) 0.8 (0.1-1.2) X10*3/uL Eos # (Auto) 0.3 (0.0-0.4) X10*3/uL Baso # (Auto) 0.1 (0.0-0.2) X10*3/uL Abs Immat Gran (auto) 0.01 (0.00-0.03) X10*3/uL Absolute Neuts (auto) 3.6 (2.0-8.3) x10*3/uL Absolute Nucleated RBC 0.000 (0.0-0.012) X10*3/uL Nucleated RBC % (auto) 0.0 (0.0-0.2) /100WBC Sodium 143 (135-145) mmol/L Potassium 4.1 (3.3-5.1) mmol/L Chloride 110 H (96-108) mmol/L Carbon Dioxide 30 H (22-29) mmol/L Anion Gap 7 L (12-20) BUN 15 (9-16) mg/dL Creatinine 1.20 (0.5-1.4) mg/dL Estim Creat Clear Calc 118.7 Estimated GFR > 60 Random Glucose 96 (60-115) mg/dL Calcium 8.7 D (8.4-10.2) mg/dL Troponin I High Sens < 2.7 (<3.5-35.0) ng/L Independent Interpretation I performed an independent interpretation of an: EKG Interpretation: Rate: 58 Rhythm: sinus bradycardia [place]: normal Normal P waves. Normal [place]. Normal QRS complex. ST T wave : inverted t wave V1, no ADOLFO qTC: 369 prior studies: no acute ischemia The study has been interpreted contemporaneously by me. . Independent Historian Clinical information obtained from an independent historian. History obtained from or confirmed by: Parent External Record Review External record reviewed: Outpatient record Prescription Management I considered prescription management with: Other (atarax) Discharge Plan Discharge Clinical Impression: Atypical chest pain, Abnormal grief reaction Patient Disposition: Home, Self-Care Instructions: Chest Pain (ED), Grief and Loss (ED) Additional Instructions: please call [facility] [place] to establish with therapy return here for any worsening symptoms or concerns take care of yourself Prescriptions: New hydroxyzine HCl 25 mg tablet 25 mg PO TID PRN (Reason: anxiety) Qty: 30 0RF No Action cyclobenzaprine 5 mg tablet 5 mg PO TID PRN (Reason: muscle spasm) 7 Days Qty: 21 0RF omeprazole 20 mg capsule,delayed release(DR/EC) 20 mg PO DAILY 30 Days Qty: 30 0RF ondansetron 4 mg tablet,disintegrating 4 mg PO Q6-8H PRN (Reason: nausea and vomiting) Qty: 14 0RF Referrals: [facility] [Outside] Stand Alone Forms: Work/School Release Print Language: Georgian
[2024-06-08] MEDS: hydrOXYzine HCL 25 MG TABLET PO (23:10)
[2024-06-08 23:17] VITALS: BP 130/58; PULSE 66; RESP 18; TEMP 36.7; O2SAT 99
== END 2024-06-08 23:18 | disposition home or self-care (01) ==
PROVIDERS: Emergency Provider Emergency Medicine
DX: R07.89 Other chest pain (principal); F43.20 Adjustment disorder, unspecified; R00.1 Bradycardia, unspecified; I49.8 Other specified cardiac arrhythmias; Z79.899 Other long term (current) drug therapy
CPT/HCPCS: 36415; 80048; 84484; 85025; 93005; 99283; 99285

== ENCOUNTER 2025-08-17 12:23 | Emergency (ER) | payer OTHER, SELFPAY ==
--- OUTSIDE RECORDS SUMMARY | 2025-08-15 22:09 | XMS_ITS | Encounter Summary ---
Author Organization [employer] Address [address] [place] [address] Care Team Providers Care Senior Physician Name Role Phone Physician, No Pcp Primary Care Provider Unavaila ble Reason for Referral * Consultation (Routine) - Closed Specialty Diagnoses / Procedures Referred By Rowan wade Referred To Contact Family Medicine Diagnoses Chest pain of unknown etiology Emelyn Waters PA [address] [place] [address] Phone: tel: fax: Referral ID Status Reason Start Date Expiration Date V isits Requested Visits Authorized [id number] Closed Specialty Services Required 08/15/2025 08/15/2026 1 1 Reason for Visit * Reason Comments Dizziness Chest Pain Encounter Details Date Type Department Care Team (Late st Contact Info) Description 08/15/2025 10:09 PM EST - 08/15/2025 10:[address] [facility] Emergency [address] [place] [id number] Chest pain of unknown etiology (Primary Dx) Discharge Disposition: Home or Self Care Social History Tobacco Use Types Packs/Day Years Used Date Smoking Tobacco: Never Assessed Sex and Gender Information Value Date Recorded Sex Assigned at Not on file Legal Sex Male 1:59 PM EST Gender Identity Not on file Sexual Orientation Not on file documented as of this encounter Last Filed Vital Signs Vital Sign Reading Time Taken Comments Blood Pressure 134/99 08/15/2025 10:06 PM EST Pulse 65 08/15/2025 10:06 PM EST Temperature 37 C (98.6 F) 08/15/2025 5:15 PM EST Respiratory Rate 16 08/15/2025 10:06 PM EST Oxygen Saturation 99% 08/15/2025 10:06 PM EST Inhaled Oxygen Concentration - - Weight 111 kg (245 lb) 08/15/2025 5:15 PM EST Height 172.7 cm (5' 8 ) 08/15/2025 5:15 PM EST Body Mass Index 37.25 08/15/2025 5:15 PM EST documented in this encounter Discharge Instructions * Discharge Instructions* FRANK Cazares - 08/15/2025 10:09 PM EST You were seen in the emergency department for chest pain. Your labs are all reassuring. We advise that you establish care with a primary care physician. Your results are reassuring and do not indicate that you need to be admitted to the hospital today.Your hospital care does not end after this visit, please follow-up with your primary care physicianand/or referred specialists as instructed. Please return to the emergency department any new or worsening symptoms. Please sign up for your MyChart for better access to your health information/results. Thank you for your visit today! * Attachments The following attachments cannot be sent through Care Everywhere. * Chest Pain (Armenian) documented in this encounter Discharge Disposition Disposition Code Departure Means Destination Comment s Home or Self Care Pt A&Ox3 at discharge with a steady and balanced gait. Discharge given by provider documented in this encounter Progress Notes * Malinda Goodwin RN - 08/15/2025 5:09 PM EST He has been having dizziness and chest pains for the past two weeks on and off. Today his tongue started to feel heavy and he felt like he was slurring. * FRANK Cazares - 08/15/2025 5:05 PM EST EMERGENCY DEPARTMENT NOTE History and Physical Patient: Jean Claude Barriga Date of : 2000 Subjective: CC: Dizziness and Chest Pain HPI: Jean Claude Barriga is a 24 y.o. male, with history listed below, who presents to ED with chief complaint of chest pain and dizziness Patient ambulates into the emergency department with a chief complaint of chest pain and dizziness.Patient states that he has been experiencing the symptoms for approximately 2 weeks. States that his symptoms come and go. Patient states that the chest pain is midsternal. Endorses radiation into the right upper extremity. Denies any previous cardiopulmonary history. Patient also endorsed swellingof the tongue earlier, but states that this is better at this time. Denies any fever or chills. Denies any any other complaints. Patient has not attempted any medications for his symptoms. Patient states that he does not have a primary care physician. Allergies listed for acetaminophen. PCP: No Pcp Physician Review of Systems Pertinent items are noted in HPI. All other systems reviewed and are negative. Medical History[1] Surgical History[2] Family History[3] Social History[4] Problem List[5] History reviewed by me. Current Medications[6] Allergies[7] Physical Exam: Vitals: 08/15/25 1715 08/15/25 2206 BP: (!) 141/91 (!) 134/99 BP Location: Left arm Right arm Patient Position: Sitting Sitting Pulse: 69 65 Resp: 16 16 Temp: 37 ??C (98.6 ??F) TempSrc: Oral SpO2: 98% 99% Weight: 111 kg (245 lb) Height: 1.727 m (68 ) General: alert and oriented, in no acute distress Head: Normocephalic, without obvious abnormality, atraumatic Neck: normal, supple, no lymphadenopathy Eyes: No gross abnormalities., EOMI, and Sclera nonicteric ENT: moist oral mucosa, no oral lesions Pulmonary: normal air exchange, no rales, no rhonchi, no wheezes, respiratory effort normal with noretractions Cardiovascular: regular rate, regular rhythm, and no murmurs detected Gastrointestinal: soft, nondistended Genitourinary: not reviewed Musculoskeletal: no joint swelling or tenderness noted, no deformities Dermatologic: Warm, well perfused, no rashes, no wounds Neurologic:Grossly nonfocal, neurologically appropriate for age, and speech normal Psych: alert,oriented, in NAD with a full range of affect, normal behavior and no psychotic features Orders placed: Orders Placed This Encounter Procedures XR Chest 2 Views CBC and differential Comprehensive metabolic panel Troponin I high sensitivity Magnesium Lipase CBC auto differential Ambulatory referral to Family Practice ECG 12 lead Labs/Data Reviewed: Recent Results (from the past 24 hours) ECG 12 lead Collection Time: 08/15/25 5:14 PM Result Value Ref Range Ventricular Rate ECG 61 BPM Atrial Rate 61 BPM P-R Interval 150 ms QRS Duration 84 ms Q-T Interval 358 ms QTc 360 ms P Wave [place] 46 degrees R [place] 10 degrees T [place] 34 degrees ECG Interpretation Normal sinus rhythm with sinus arrhythmia Normal ECG When compared with ECG of 31-JAN-2012 00:45, PREVIOUS ECG IS PRESENT Confirmed by Gray KRISHNA YUFENG ([id number]) on 08/15/2025 8:12:15 PM Comprehensive metabolic panel Collection Time: 08/15/25 7:43 PM Result Value Ref Range Sodium 138 133 - 145 mmol/L Potassium 4.0 3.5 - 5.5 mmol/L Chloride 103 96 - 110 mmol/L CO2 32 21 - 32 mmol/L Anion Gap 3 3 - 11 Glucose 97 70 - 100 mg/dL BUN 11 5 - 25 mg/dL Creatinine 1.02 0.70 - 1.30 mg/dL eGFR 105 >=60 mL/min/1.73m2 BUN/Creatinine Ratio 10.8 Calcium 9.5 8.5 - 10.5 mg/dL AST (SGOT) 19 10 - 42 unit/L ALT (SGPT) 31 10 - 60 unit/L Alkaline Phosphatase 96 42 - 121 unit/L Total Protein 7.4 6.0 - 8.0 g/dL Albumin 4.2 3.2 - 5.0 g/dL Total Bilirubin 0.5 0.0 - 1.4 mg/dL Troponin I high sensitivity Collection Time: 08/15/25 7:43 PM Result Value Ref Range High Sensitivity Troponin I 3 <=79 ng/L Magnesium Collection Time: 08/15/25 7:43 PM Result Value Ref Range Magnesium 2.3 1.9 - 2.6 mg/dL Lipase Collection Time: 08/15/25 7:43 PM Result Value Ref Range Lipase 31 13 - 75 unit/L CBC auto differential Collection Time: 08/15/25 7:43 PM Result Value Ref Range WBC 12.4 (H) 4.8 - 10.8 K/mcL RBC 6.00 (H) 4.50 - 5.50 M/mcL Hemoglobin 16.8 13.5 - 17.5 g/dL Hematocrit 50.6 42.0 - 54.0 % MCV 84.9 79.0 - 98.0 FL MCH 28.2 27.0 - 32.0 pcg MCHC 33.2 32.0 - 37.0 g/dL RDW 13.2 11.0 - 15.0 % Platelets 254 130 - 400 K/mcL MPV 10.0 7.0 - 11.0 FL NRBC 0.0 <1.0 % NRBC Absolute 0.00 <0.10 K/mcL Neutrophils Relative 64.4 % Lymphocytes Relative 23.1 % Monocytes Relative 8.6 % Eosinophils Relative 3.0 % Basophils Relative 0.6 % Immature Granulocytes Relative 0.3 % Neutrophils Absolute 7.95 (H) 1.50 - 7.00 K/mcL Lymphocytes Absolute 2.86 1.00 - 5.00 K/mcL Monocytes Absolute 1.07 (H) 0.20 - 1.00 K/mcL Eosinophils Absolute 0.37 0.00 - 0.50 K/mcL Basophils Absolute 0.08 0.00 - 0.20 K/mcL Immature Granulocytes Absolute 0.04 (H) 0.00 - 0.03 K/mcL Imaging: XR Chest 2 Views (Results Pending) Medications in ED: Medications - No data to display Procedures: Procedures Splint: none Critical Care time: none Differential DX: CAD, VA, pneumonia, costochondritis, hypertension Social determinant of health: No PCP Assessment / Plan / MDM: Jean Cladue Barriga is a 24 y.o. male, with history, as above, who presents to ED with chief complaintof Dizziness and Chest Pain After obtaining the patient's history, performing the physical exam, multiple initial diagnoses were considered based on the presenting problem. Thorough ED workup was conducted. Patient has a benignexam. Lab work was conducted. CBC displays a white blood cell count of 12.4. Patient has no infectious symptoms. Afebrile. Low suspicion for acute infection at this time. CMP is unremarkable. Lipase and magnesium within normal limits. EKG as indicated displays no immediate STEMI. Troponin negative.Wet read of chest x-ray displays no acute cardiopulmonary abnormality. Results were discussed with the patient at bedside. Patient has a low heart score. Patient was advised to establish care with a [facility] care physician and take down inspector as needed. Patient agreed with the plan and requested discharge. Red flags and reasons to return to the emergency department were discussed. Everything was thoroughly discussed with the patient or parent and all questions were answered. Patient/parent report no further questions or complaints to me. Patient or parent displayed understanding and verbalizes agreement with the plan. The patient/parent is aware that ED evaluation is not all-encompassing for all components of a medical problem and that they must follow-up as an outpatient.Patient advised to follow-up with referred providers and/or primary care physician as advised. Reasons to return to the emergency department were extensively discussed and patient is aware to return to the emergency department if experiencing new or worsening symptoms. Patient was provided a handout relevant to their care, diagnosis, and routine education materials upon discharge. Patient was discharged, in stable condition. ED Course / Continued MDM: ED Course as of 08/16/259 Mon Aug 15, 2025 2205 EKG indication chest pain My supervising physician signed off on the EKG indicating no immediate STEMI My interpretation: Normal sinus rhythm with sinus arrhythmia, 61 bpm, no ectopy [JS] ED Course User Index [JS] FRANK Cazares Clinical Impressions as of 08/16/259 Chest pain of unknown etiology DISPOSITION: Discharged, in stable condition 1. Chest pain of unknown etiology Follow up: No follow-up provider specified. Medications listed below were prescribed by myself and thoroughly discussed with the patient. Patient was advised to ask the pharmacist at pickup if any new questions arise after the ED visit. Discharge Rx: There are no discharge medications for this patient. *if narcotic medications prescribed, I have monitored for controlled parenteral medications via epic* Emelyn Moya PA-C Emergency Department Note was written utilizing [employer] voice/speech recognition technology. All efforts to correct inherent errors or omissions were attempted. Grammatical errors, random word insertions, deletions, pronoun errors and incomplete sentences are occasional consequences of this technology due to software rodriges itations. If there are questions or concerns about the content of this note or information contained within the body of this dictation, please contact the author for clarification/immediate correction. FRANK Cazares 08/15/25 2210 [1] Past Medical History: Diagnosis Date Patient denies medical problems [2] No past surgical history on file. [3] No family history on file. [4] [5] There is no problem list on file for this patient. [6] No current facility-administered medications for this encounter. No current outpatient medications on file. [7] Allergies Allergen Reactions Acetaminophen FRANK Cazares 08/16/25 0010 Cosigned by Philip Waters MD at 08/16/2025 4:06 PM EST documented in this encounter Plan of Treatment Scheduled Referrals Name Type Priority Associated Diagnoses Order Schedule Ambulatory referral to [facility] Outpatient Referral Routine 1 Occurre nces starting 08/15/2025 until 08/15/2026 documented as of this encounter Procedures Procedure Name Priority Date/Time Associated Diagnosis Comments ECG ANNOTATED 08/16/2025 XR CHEST 2 VIEWS STAT 08/15/2025 7:49 PM EST TROPONIN I HIGH SENSITIVITY STAT 08/15/2025 7:43 PM EST CBC WITH AUTO DIFFERENTIAL STAT 08/15/2025 7:43 PM EST CBC AND DIFFERENTIAL STAT 08/15/2025 7:43 PM EST MAGNESIUM STAT 08/15/2025 7:43 PM EST LIPASE STAT 08/15/2025 7:43 PM EST COMPREHENSIVE METABOLIC PANEL STAT 08/15/2025 7:43 PM EST ECG 12-LEAD STAT 08/15/2025 5:14 PM EST documented in this encounter Results * ECG-Annotated (08/16/2025) us Provider Onbase MD ECG ORDERABLES Final Result * XR Chest 2 Views (08/15/2025 7:49 PM EST) Anatomical Region Laterality Modality Body Radiographic Lupe ging 08/16/2025 7:28 AM EST Impressions 08/16/2025 7:30 AM EST No acute pneumonia or edema. -------- FINAL REPORT -------- Dictated By: Alejandro Rutherford Dictated Date: 08/16/2025 07:28 ET Assigned Physician: Alejandro Rutherford Reviewed and Electronically Signed By: Alejandro Rutherford Signed Date: 08/16/2025 07:30 ET Workstation ID: [id number] Transcribed By: Self Edit Transcribed Date: 08/16/2025 07:28 ET Narrative 08/16/2025 7:30 AM EST EXAMINATION: CHEST CLINICAL INFORMATION: Chest pain COMPARISON: Frontal view 11/13/08 TECHNIQUE: 2 views of the chest FINDINGS: Cardiac size within normal limits. No mediastinal or hilar mass. The vasculature, lungs and visualized pleural margins are within normal limits. Linear density superimposing over the lateral lower left chest may overlie the patient. Trace anterior wedging in the thoracolumbar junction region. Procedure Note Alejandro Rutherford, - 08/16/2025 EXAMINATION: CHEST CLINICAL INFORMATION: Chest pain COMPARISON: Frontal view 11/13/08 TECHNIQUE: 2 views of the chest FINDINGS: Cardiac size within normal limits. No mediastinal or hilar mass. Thevasculature, lungs and visualized pleural margins are within normallimits. Linear density superimposing over the lateral lower left chest may overliethe patient. Trace anterior wedging in the thoracolumbar junction region. IMPRESSION: No acute pneumonia or edema. -------- FINAL REPORT -------- Dictated By: Alejandro Rutherford Dictated Date: 08/16/2025 07:28 ET Assigned Physician: Alejandro Rutherford Reviewed and Electronically Signed By: Alejandro Rutherford Signed Date: 08/16/2025 07:30 ET Workstation ID: [id number] Transcribed By: Self Edit Transcribed Date: 08/16/2025 07:28 ET Emelyn MARIE IMG XR PROCEDURES Final Result * (ABNORMAL) CBC auto differential (08/15/2025 7:43 PM EST) WBC 12.4(H) 4.8 - 10.8 K/mcL LAB HEMETOLOGY METHOD 08/15/2025 8:14 PM [facility] RBC 6.00(H) 4.50 - 5.50 M/mcL LAB HEMETOLOGY METHOD 08/15/2025 8:14 PM [facility] Hemoglobin 16.8 13.5 - 17.5 g/dL LAB HEMETOLOGY METHOD 08/15/2025 8:14 PM [facility] Hematocrit 50.6 42.0 - 54.0 % LAB HEMETOLOGY METHOD 08/15/2025 8:14 PM [facility] MCV 84.9 79.0 - 98.0 FL LAB HEMETOLOGY METHOD 08/15/2025 8:14 PM [facility] MCH 28.2 27.0 - 32.0 pcg LAB HEMETOLOGY METHOD 08/15/2025 8:14 PM [facility] MCHC 33.2 32.0 - 37.0 g/dL LAB HEMETOLOGY METHOD 08/15/2025 8:14 PM [facility] RDW 13.2 11.0 - 15.0 % LAB HEMETOLOGY METHOD 08/15/2025 8:14 PM [facility] Platelets 254 130 - 400 K/mcL LAB HEMETOLOGY METHOD 08/15/2025 8:14 PM [facility] MPV 10.0 7.0 - 11.0 FL LAB HEMETOLOGY METHOD 08/15/2025 8:14 PM [facility] NRBC 0.0 <1.0 % LAB HEMETOLOGY METHOD 08/15/2025 8:14 PM [facility] NRBC Absolute 0.00 <0.10 K/mcL LAB HEMETOLOGY METHOD 08/15/2025 8:14 PM [facility] Neutrophils Relative 64.4 % LAB HEMETOLOGY METHOD 08/15/2025 8:14 PM [facility] Lymphocytes Relative 23.1 % LAB HEMETOLOGY METHOD 08/15/2025 8:14 PM [facility] Monocytes Relative 8.6 % LAB HEMETOLOGY METHOD 08/15/2025 8:14 PM [facility] Eosinophils Relative 3.0 % LAB HEMETOLOGY METHOD 08/15/2025 8:14 PM [facility] Basophils Relative 0.6 % LAB HEMETOLOGY METHOD 08/15/2025 8:14 PM [facility] Immature Granulocytes Relative 0.3 % LAB HEMETOLOGY METHOD 08/15/2025 8:14 PM [facility] Neutrophils Absolute 7.95(H) 1.50 - 7.00 K/mcL LAB HEMETOLOGY METHOD 08/15/2025 8:14 PM [facility] Lymphocytes Absolute 2.86 1.00 - 5.00 K/mcL LAB HEMETOLOGY METHOD 08/15/2025 8:14 PM [facility] Monocytes Absolute 1.07(H) 0.20 - 1.00 K/mcL LAB HEMETOLOGY METHOD 08/15/2025 8:14 PM [facility] Eosinophils Absolute 0.37 0.00 - 0.50 K/mcL LAB HEMETOLOGY METHOD 08/15/2025 8:14 PM [facility] Basophils Absolute 0.08 0.00 - 0.20 K/mcL LAB HEMETOLOGY METHOD 08/15/2025 8:14 PM EST [facility] Immature Granulocytes Absolute 0.04(H) 0.00 - 0.03 K/mcL LAB HEMETOLOGY METHOD 08/15/2025 8:14 PM EST [facility] Blood Venous blood specimen / Unknown Venipuncture / Unknown 08/15/2025 7:43 PM EST 08/15/2025 8:06 PM EST Emelyn MARIE LAB BLOOD ORDERABLES Final Res ult Performing Organization Address City/[facility]/ZIP Co de Phone Number [facility] [address] [place] [address], [place] [phone] * Lipase (08/15/2025 7:43 PM EST) Lipase 31 13 - 75 unit/L LAB CHEMISTRY METHOD 08/15/2025 8:38 PM EST [facility] Blood Venous blood specimen / Unknown Venipuncture / Unknown 08/15/2025 7:43 PM EST 08/15/2025 8:05 PM EST Emelyn MARIE LAB BLOOD ORDERABLES Final Res ult Performing Organization Address City/[facility]/ZIP Co de Phone Number [facility] [address] [place] [address], [place] [phone] * Magnesium (08/15/2025 7:43 PM EST) Magnesium 2.3 1.9 - 2.6 mg/dL LAB CHEMISTRY METHOD 08/15/2025 8:38 PM EST [facility] Blood Venous blood specimen / Unknown Venipuncture / Unknown 08/15/2025 7:43 PM EST 08/15/2025 8:05 PM EST Emelyn MARIE LAB BLOOD ORDERABLES Final Res ult [facility] [address] [place] [address], * Troponin I high sensitivity (08/15/2025 7:43 PM EST) [facility] High Sensitivity Troponin I 3 <=79 ng/L LAB CHEMISTRY METHOD 08/15/2025 8:38 PM EST [facility] Blood Venous blood specimen / Unknown Venipuncture / Unknown 08/15/2025 7:43 PM EST 08/15/2025 8:06 PM EST Narrative [facility] - 08/15/2025 8:38 PM EST High levels of biotin in samples may falsely decrease hsTroponin values. Use caution when interpreting hsTroponin results in patients taking biotin who exhibit renal impairment (eGFR <60) or in patients taking more than 20 mg/day of biotin. Emelyn MARIE LAB BLOOD ORDERABLES Final Res ult [facility] [address] [place] [address], [place] [phone] * Comprehensive metabolic panel (08/15/2025 7:43 PM EST) [facility] Sodium 138 133 - 145 mmol/L LAB CHEMISTRY METHOD 08/15/2025 8:38 PM EST [facility] Potassium 4.0 3.5 - 5.5 mmol/L LAB CHEMISTRY METHOD 08/15/2025 8:38 PM [facility] Chloride 103 96 - 110 mmol/L LAB CHEMISTRY METHOD 08/15/2025 8:38 PM EST [facility] CO2 32 21 - 32 mmol/L LAB CHEMISTRY METHOD 08/15/2025 8:38 PM [facility] Anion Gap 3 3 - 11 LAB CHEMISTRY METHOD 08/15/2025 8:38 PM [facility] Glucose 97 70 - 100 mg/dL LAB CHEMISTRY METHOD 08/15/2025 8:38 PM [facility] BUN 11 5 - 25 mg/dL LAB CHEMISTRY METHOD 08/15/2025 8:38 PM [facility] Creatinine 1.02 0.70 - 1.30 mg/dL LAB CHEMISTRY METHOD 08/15/2025 8:38 PM [facility] eGFR 105 >=60 mL/min/1. 73m2 LAB CHEMISTRY METHOD 08/15/2025 8:38 PM [facility] Comment:Calculation based on the Chronic Kidney Disease Epidemiology Collaboration (CKD-EPI) equation refit without adjustment for race. BUN/Creatinine Ratio 10.8 LAB CHEMISTRY METHOD 08/15/2025 8:38 PM [facility] Calcium 9.5 8.5 - 10.5 mg/dL LAB CHEMISTRY METHOD 08/15/2025 8:38 PM [facility] AST (SGOT) 19 10 - 42 unit/L LAB CHEMISTRY METHOD 08/15/2025 8:38 PM [facility] ALT (SGPT) 31 10 - 60 unit/L LAB CHEMISTRY METHOD 08/15/2025 8:38 PM [facility] Alkaline Phosphatase 96 42 - 121 unit/L LAB CHEMISTRY METHOD 08/15/2025 8:38 PM [facility] Total Protein 7.4 6.0 - 8.0 g/dL LAB CHEMISTRY METHOD 08/15/2025 8:38 PM [facility] Albumin 4.2 3.2 - 5.0 g/dL LAB CHEMISTRY METHOD 08/15/2025 8:38 PM [facility] Total Bilirubin 0.5 0.0 - 1.4 mg/dL LAB CHEMISTRY METHOD 08/15/2025 8:38 PM [facility] Blood Venous blood specimen / Unknown Venipuncture / Unknown 08/15/2025 7:43 PM EST 08/15/2025 8:05 PM EST Emelyn MARIE LAB BLOOD ORDERABLES Final Res ult [facility] [address] [place] [address], [place] [phone] * ECG 12 lead (08/15/2025 5:14 PM EST) Ventricular Rate ECG 61 BPM GEMUSE Atrial Rate 61 BPM GEMUSE P-R Interval 150 ms GEMUSE QRS Duration 84 ms GEMUSE Q-T Interval 358 ms GEMUSE QTc 360 ms GEMUSE P Wave [place] 46 degrees GEMUSE R [place] 10 degrees GEMUSE T [place] 34 degrees GEMUSE ECG Interpretation Normal sinus rhythm with sinus arrhythmia Normal ECG When compared with ECG of 31-JAN-2012 00:45, PREVIOUS ECG IS PRESENT Confirmed by Gray KRISHNA YUFENG ([id number]) on 08/15/2025 8:12:15 PM GEMUSE 08/15/2025 5:14 PM EST 08/15/2025 8:12 PM EST us Emelyn MARIE ECG ORDERABLES Final Result GEMUSE documented in this encounter Visit Diagnoses Diagnosis Chest pain of unknown etiology- Primary documented in this encounter Care Teams Senior Physician Relationship Specialty Start Date End Date Physician, No Pcp PCP - General 08/15/25 documented as of this encounter
--- NOTE | ~2025-08-17 | XR_ITS ---
EXAMINATION: XR CHEST CLINICAL INFORMATION: Pneumonia? COMPARISON: None available. TECHNIQUE: Frontal view of the chest was obtained. FINDINGS: No significant abnormality is noted involving the heart, lungs, mediastinum, bony thorax or soft tissues. XR/XR chest 1V IMPRESSION: Unremarkable examination. Electronically signed by: Annetta Anderson MD 08/17/2025 02:59 PM [facility]
[2025-08-17 12:37] VITALS: BP 134/64; PULSE 66; RESP 18; TEMP 36.6; O2SAT 98; BMI 38.5
--- NOTE | 2025-08-17 12:45 | ECG_ITS ---
Test Reason : chest pain/ diziness Blood Pressure : */* mmHG Vent. Rate : 49 BPM Atrial Rate : 49 BPM P-R Int : 142 ms QRS Dur : 86 ms QT Int : 388 ms P-R-T Axes : 29 -8 21 degrees QTcB Int : 350 ms Sinus bradycardia Otherwise normal ECG When compared with ECG of 08-Jun-2024 21:01, No significant change was found Referred By: Pavel Saucedo Electronically Signed By: Yohan Lopez
--- NOTE | 2025-08-17 12:51 | ED_ITS ---
HPI - General Adult General Chief complaint: Dizziness Stated complaint: Dizziness Time Seen by Provider: 08/17/25 15:28 Source: patient Mode of arrival: ambulatory Limitations: no limitations History of Present Illness ED Provider: ARA MOYA PA-C HPI narrative: 24 year old male who presents for evaluation of intermittent dizziness and chest discomfort. Reports episodes of feeling light headed, tingling to bilateral hands, chest tightness and air hunger, stating he feel as though he cannot get enough air. This occurs various times throughout the day. The last episode was on waking this morning which concerned him, prompting him to come in for evaluation. He was also evaluated for same at [facility] 2 days ago. He had an unremarkable workup and was discharged home. Patient endorses history of anxiety as a child. This was previously managed with medications however he felt as though he grew out of it . He is no longer on any medications for this. He is accompanied by his mother who was at bedside. She states that patient has a lot of recent life stressors. Patient reports symptoms have been ongoing for years. 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 Patient is also endorsing bilateral ear pain (R>L), sinus pain, and nasal congestion. Denies fever, chills, palpitations, sob, LE pain/swelling. Related Data Previous Rx's ?Medication ?Instructions ?Recorded cyclobenzaprine 5 mg tablet 5 mg PO TID PRN muscle spa sm 7 03/24/23 days #21 tabs omeprazole 20 mg capsule,delayed 20 mg PO DAILY 30 day s #30 caps 08/22/23 release ondansetron 4 mg disintegrating 4 mg PO Q6-8H PRN naus ea and 08/22/23 tablet vomiting #14 tabs hydroxyzine HCl 25 mg tablet 25 mg PO TID PRN anxiety #30 tabs 06/08/24 amoxicillin 875 mg-potassium 1 tab PO Q12H 7 days #14 tabs 08/17/25 clavulanate 125 mg tablet ciprofloxacin 0.3 %-dexamethasone 4 drp otic (ears) Q1 2H 7 days #7.5 08/17/25 0.1 % ear drops,suspension mL hydroxyzine pamoate 25 mg capsule 25 mg PO TID PRN anx iety #30 caps 08/17/25 Allergies Allergy/AdvReac Type Severity Reaction Status Date / Time acetaminophen (From TYLENOL) Allergy Mild RASH Verified 08/17/25 12:40 Review of Systems 2 Review of Systems: Yes all other systems are reviewed and are negative [facility] Past Medical History Attestation statement: The following information was validated with the patient. Source: old records reviewed and nursing notes reviewed Medical History No known health problems Social History Social History Alcohol intake: never Patient Tobacco Use Status: Never used Tobacco Smoked in Last 30 Days: No Substance Use Type: Marijuana Advance Directives: No Advance Directives Information Provided: Yes Do you have a plan to hurt others: No Plan Physical Exam ED Vital Signs: Vital Signs - 24 hr 08/17/25 12:37 08/17/25 16:56 08/17/25 17:36 Temperature 98 F 97.9 F 97.9 F Pulse Rate 66 47 L 47 L Respiratory Rate 18 18 Blood Pressure 134/64 130/72 130/72 Pulse Oximetry 98 98 98 Oxygen Delivery Method Room Air Room Air BMI result Body Mass Index 38.5 Vital signs stable General: Well appearing, in no acute distress. Skin: Warm, dry, intact. No rashes or lesions. Head: Normocephalic, atraumatic. Tender to percussion of frontal sinus. EENT: Hearing is intact b/l. Conjunctiva clear. PERRLA. EOM intact. Moist mucous membranes.? + No pain on manipulation of left pinna or tragus. No protrusion of the auricle. No mastoid tenderness, fluctuance, warmth. Left EAC without erythema, edema or discharge. TM intact without erythema, effusion, or bulging. + pain on manipulation of right pinna. No protrusion of the auricle. No mastoid tenderness, fluctuance, warmth. Right EAC erythematous and edematous, no discharge. TM intact without erythema, effusion, or bulging. Neck: Supple without LAD? Cardiac: Chest wall symmetric. RRR. No reproducible chest wall tenderness. Lungs: Normal respiratory effort without accessory muscle use. CTA bilaterally Abdomen: Soft, non-tender, non-distended. No rebound tenderness or guarding. Positive BS x4. Back: No midline spinous or paraspinal tenderness. No step off deformity. Ext: Upper and lower extremities atraumatic, without tenderness, deformity, swelling or erythema. no pitting edema, no calf tenderness. Neuro: AOx3. Normal speech. Ambulating with steady gait Course Course Course Narrative: RME: 24-year-old male presents to ED for dizziness and chest pain tolerate evaluated at [facility]. Patient states today dizziness but no chest pain. Patient states also tingling in hands. Patient denies any slurred speech facial droop paralysis of extremities. NIH score is 0. Labs EKG ordered Reevaluation(s) Reevaluation #1: CBC showing slight leukocytosis to 11 without left shift. No anemia, H and H stable. Chemistry without acute electrolyte abnormality requiring intervention. No ERIC. Liver function WNL. Troponin undetectable. BNP WNL. Chest x-ray without evidence of pneumonia, pulmonary edema or cardiomegaly. EKG showing sinus bradycardia with a rate of 49 beats per minute. On review, patient is baseline bradycardic. I also discussed this with mother at bedside who states that his low heart rate has been ongoing for years. His ekg is non ischemic. his ddimer is undetectable, I do not feel as though CTA chest is warranted. > I believe patient's symptoms are consistent with anxiety. I have given him a dose of Atarax in the ED today. Plan to send script. > he also has an external ear infection to his right ear. Exam is also concerning for a sinus infection. Will send Augmentin and Ciprodex to pharmacy for treatment. Patient has remained stable throughout ED visit today. Discussed worrisome signs and symptoms and when to return to the ED. All questions answered at this time. Patient is agreeable with disposition and stable for discharge. provided referrals to PCP and cardiology for follow up. Medications Administered Discontinued Medications Generic Name Dose Route Start Last Admin Trade Name Freq PRN Reason Stop Dose Admin Hydroxyzine HCl 25 mg 08/17/25 16:28 08/17/25 16:37 Hydroxyzine Hcl 25 Mg Tablet PO 08/17/25 16:29 25 mg ONCE ONE Administration Medical Decision Making Medical Decision Making [facility] Narrative: 24 year old male who presents for evaluation of intermittent dizziness and chest discomfort. History without high risk features (not substernal, no exertional component, not relieved with rest).? Minimal CAD risk factors (including age). Exam without evidence of volume overload. EKG without signs of active ischemia Given the timing of pain to ED presentation, plan to send single troponin to evaluate for NSTEMI. Differential diagnosis also includes anemia, electrolyte abnormality, costochondritis, msk pain, pneumonia, pleurisy, anxiety Presentation not consistent with acute PE (PERC 0), pneumothorax, thoracic aortic dissection, cardiac effusion or tamponade, myocarditis, pericarditis. Plan: labs, troponin, EKG, CXR, re-eval. I have also considered sinusitis, otitis media, otitis externa. Unlikely malignant otitis externa, mastoiditis. Differential Diagnosis Differential Diagnoses: The differential diagnosis associated with the presentation includes as above. Admission/Observation not indicated. Lab Data MDM Lab Attestation statement: I reviewed the patient's lab results. as above. 08/17/25 13:15 08/17/25 13:15 Labs: Lab Results 08/17/25 Range/Units 13:15 WBC 11.0 H (4.8-10.8) X10*3/uL RBC 6.08 H (4.60-5.80) X10*6/uL Hgb 17.3 (14.0-18.0) g/dl Hct 51.4 (42.0-52.0) % MCV 84.5 (80.0-98.0) fL MCH 28.5 (27.0-33.0) pg MCHC 33.7 (31.0-36.0) g/dl RDW 13.0 (11.0-16.0) % Plt Count 231 (160-400) X10*3/uL MPV 9.7 (9.4-12.4) fL Immature Gran % (Auto) 0.3 (0.0-0.4) % Neut % (Auto) 70.6 (45-73) % Lymph % (Auto) 17.9 L (20-40) % Edmunds % (Auto) 8.2 (2-11) % Eos % (Auto) 2.5 (0-4) % Baso % (Auto) 0.5 (0-2) % Lymph # (Auto) 2.0 (1.2-4.9) X10*3/uL Edmunds # (Auto) 0.9 (0.1-1.2) X10*3/uL Eos # (Auto) 0.3 (0.0-0.4) X10*3/uL Baso # (Auto) 0.1 (0.0-0.2) X10*3/uL Abs Immat Gran (auto) 0.03 (0.00-0.03) X10*3/uL Absolute Neuts (auto) 7.7 (2.0-8.3) x10*3/uL Absolute Nucleated RBC 0.000 (0.0-0.012) X10*3/uL Nucleated RBC % (auto) 0.0 (0.0-0.2) /100WBC PT 11.7 (11.2-13.5) SEC INR 1.0 (0.9-1.1) APTT 32.1 (26.7-34.1) SEC D-Dimer High Sensitivty < 150 NG/ML Sodium 141 (135-145) mmol/L Potassium 4.6 (3.3-5.1) mmol/L Chloride 107 (96-108) mmol/L Carbon Dioxide 28 (22-29) mmol/L Anion Gap 11 L (12-20) BUN 15 (9-16) mg/dL Creatinine 0.93 (0.5-1.4) mg/dL Estim Creat Clear Calc 149.4 Estimated GFR > 60 Random Glucose 92 (60-115) mg/dL Calcium 9.5 D (8.4-10.2) mg/dL Total Bilirubin 0.5 (0.0-1.0) mg/dL AST 25 (5-37) U/L ALT 27 (0-40) U/L Alkaline Phosphatase 94 (39-117) U/L Troponin I High Sens < 2.7 (<3.5-35.0) ng/L NT-Pro-B Natriuret Pep 30.0 (<300) pg/mL Total Protein 7.5 (6.5-8.0) g/dL Albumin 4.7 (3.5-5.0) g/dL Independent Interpretation I performed an independent interpretation of an: EKG and Plain X-Ray Interpretation: EKG showing sinus bradycardia, rate 49 beats per minute, no acute ischemic changes or st elevations chest xray without infiltrate or consolidation Radiology Impression Discussion of test interpretation with radiology: I have reviewed the radiologist's reading. Discharge Plan Discharge Clinical Impression: Anxiety, Otitis externa, Sinusitis Patient Disposition: Home, Self-Care Instructions: Sinusitis (ED), Anxiety (ED) Additional Instructions: Your blood work is reassuring. Your cardiac enzyme is normal. Your chest xray and ekg are normal. Your symptoms are consistent with anxiety. I am sending hydroxyzine to your pharmacy for you to take 3 times daily as needed for anxiety. This may make you a little sleepy. Please follow up with your primary care provider regarding further prescriptions. You may need to be placed on something different if this does not seem to properly controlled your anxiety. Return with any new or worsening symptoms. In the case of an emergency call 911. I am also treating you for a sinus infection and outer ear infection. Augmentin as an antibiotic that has been sent to your pharmacy. Take this as prescribed. On Augmentin, softer bowel movements are to be expected. Call your provider if you move your bowels more than 4 times a day, your bowel movements are almost all liquid, or you get a rash.? Ciprodex ear drop have been sent to your pharmacy. Prescriptions: New hydroxyzine pamoate 25 mg capsule 25 mg PO TID PRN (Reason: anxiety) Qty: 30 0RF ciprofloxacin-dexamethasone 0.3-0.1 % drops,suspension 4 drp otic (ears) Q12H 7 Days Qty: 7.5 0RF amoxicillin-pot clavulanate 875-125 mg tablet 1 tab PO Q12H 7 Days Qty: 14 0RF No Action cyclobenzaprine 5 mg tablet 5 mg PO TID PRN (Reason: muscle spasm) 7 Days Qty: 21 0RF omeprazole 20 mg capsule,delayed release(DR/EC) 20 mg PO DAILY 30 Days Qty: 30 0RF ondansetron 4 mg tablet,disintegrating 4 mg PO Q6-8H PRN (Reason: nausea and vomiting) Qty: 14 0RF hydroxyzine HCl 25 mg tablet 25 mg PO TID PRN (Reason: anxiety) Qty: 30 0RF Referrals: [facility] [Provider Group] [facility] [Provider Group, Family Practice] [facility], [facility] [Provider Group, Internal Medicine] [facility], Mili [Provider Group, Internal Medicine] Physician,None [Primary Care Provider, Medical] Interventions: ED Discharge Assessment Last Done: 08/17/25 17:36 Discharge Date/Time: 08/17/25 17:36 Print Language: Tamazight
[2025-08-17 13:20] LABS: MANUAL DIFF FLAG NO
[2025-08-17 13:24] LABS: Hematocrit 51.4 % (42.0-52.0); Hemoglobin 17.3 g/dl (14.0-18.0); Imm Gran Abs Auto 0.03 X10*3/uL (0.00-0.03); Imm Gran Pct Auto 0.3 % (0.0-0.4); Lymphocytes Absolute Auto 2.0 X10*3/uL (1.2-4.9); Mean Corpuscular HGB Conc 33.7 g/dl (31.0-36.0); Mean Corpuscular Hemoglobin 28.5 pg (27.0-33.0); Mean Corpuscular Volume 84.5 fL (80.0-98.0); NRBC Abs Auto 0.000 X10*3/uL (0.0-0.012); NRBC Pct Auto 0.0 /100WBC (0.0-0.2); Platelet Count 231 X10*3/uL (160-400); Red Blood Count 6.08 X10*6/uL (4.60-5.80); White Blood Count 11.0 X10*3/uL (4.8-10.8)
[2025-08-17 13:34] LABS: INTERNATIONAL NORM RATIO 1.0 (0.9-1.1); Prothrombin Time 11.7 SEC (11.2-13.5)
[2025-08-17 13:36] LABS: Alanine Aminotransferase 27 U/L (0-40); Albumin Level 4.7 g/dL (3.5-5.0); Alkaline Phosphatase 94 U/L (39-117); Anion Gap 11 (12-20); Aspartate Amino Transferase 25 U/L (5-37); Blood Urea Nitrogen 15 mg/dL (9-16); Calcium 9.5 mg/dL (8.4-10.2); Carbon Dioxide 28 mmol/L (22-29); Chloride 107 mmol/L (96-108); Creatinine Clr Calc Pharmacy 149.4; Estimated Glomerular Filt Rate > 60; Potassium 4.6 mmol/L (3.3-5.1); Sodium 141 mmol/L (135-145); Total Protein 7.5 g/dL (6.5-8.0)
[2025-08-17 13:37] LABS: Partial Thromboplastin Time 32.1 SEC (26.7-34.1)
[2025-08-17 13:46] LABS: Troponin-I High Sensitivity < 2.7 ng/L (<3.5-35.0)
[2025-08-17 13:52] LABS: NT Pro B Type Natriuretic Pept 30.0 pg/mL (<300)
[2025-08-17 16:33] LABS: D Dimer High Sensitivity < 150 NG/ML
[2025-08-17 16:56] VITALS: BP 130/72; PULSE 47; TEMP 36.6; O2SAT 98
[2025-08-17 17:36] VITALS: BP 130/72; PULSE 47; RESP 18; TEMP 36.6; O2SAT 98
--- OUTSIDE RECORDS SUMMARY | 2025-08-17 18:24 | XMS_ITS | Data Portability ---
Author Organization FRANK Mathew s, [address] Address [address] [place] [address] Care Team Providers Care Rn Family Name Role Phone [facility] Primary Care Provider Assessment No assessment recorded. Plan of Treatment Reminders Order Date Submit Date Provider Last Modified By Organization Details Last Modified Time Details Appointments None recorded. Lab rapid strep group A, throat 2022 023 [email or web address] _oliverio [facility], [address] [place], [address], 3 10:43:28 streptococc us group A, culture, throat 2022 023 [facility], [address] [place] [address], [address], 3 16:07:11 rapid SARS CoV 2 Ag, QL IA, respiratory specimen 2021 022 _[facility], [address] [place], [address], 2 16:02:43 SARS CoV 2 RNA (COVID-19), QL, loop cutter-PCR, respiratory specimen 2021 022 [facility], [address] [place] [address], [address], 2 22:06:00 Referral None recorded. Procedures None recorded. Surgeries None recorded. Imaging XR, chest, 2 view 2021 022 [email or web address] 0 [facility], [address] [place], [address], 2 16:09:00 Medication Orders doxycycline hyclate 100 mg capsule 2023 024 [facility]/Pharmacy #0488, [address] [place], [address], 4 13:05:49 fluticasone propionate 50 mcg/actuati on nasal spray,suspe nsion 2023 024 [facility]/Pharmacy #0488, [address] [place], [address], 4 18:48:09 amoxicillin 875 mg tablet 2023 024 [facility]/Pharmacy #0488, [address] [place], [address], 4 12:53:25 amoxicillin 875 mg tablet [address]/Pharmacy #0693, [address] [place], [address], 4 12:53:22 ibuprofen 800 mg tablet 2022 024 [facility]/Pharmacy #0693, [address] [place], [address], 4 12:57:31 amoxicillin 875 mg-potassiu m clavulanate 125 mg tablet 2022 023 [facility]/Pharmacy #0488, [address] [place], [address], 4 18:43:16 prednisone 20 mg tablet 2022 023 [email or web address] [facility]/Pharmacy #0488, [address] [place], [address], 4 12:53:33 prednisone 10 mg tablet 2021 023 [facility]/Pharmacy #0488, [address] [facility] [place], [address], 4 18:43:32 albuterol sulfate HFA 90 mcg/actuati on aerosol inhaler 2021 023 NINA [facility]/Pharmacy #0488, [address] [facility] [place], [address], 3 17:33:06 Patient TargetsNo targets recorded. Patient Instructions Encounter Date Encounter Id Patient Instructions Last Modified By Organization Details Last Modified Time 10/03/2022 [id number] cough: care instructions Not available 10/03/2022 15:24:17 upper respirator y infection (cold): care instructions Not available 10/03/2022 16:02:44 Symptoms are mos t likely viral. Take steroid as directed to help with symptoms. Rest, fluids, humidifier, nasal decongestants to help reduce symptoms. If symptoms worsen, return to clinic. You should follow-up with [facility] or your PCP in 2-3 days, or at any time if your condition does not improve or worsens. Any acute change should prompt a visit to the nearest Emergency Department. Not available 10/03/2022 15:24:47 06/01/2023 [id number] sore throat: car e instructions [email or web address] Not available 06/01/2023 10:43:26 08/27/2023 [id number] Based on your presentation and exam, you are being treated for a Dental Infection. I am going to prescribe you and antibiotic to cover this infection. Please be sure to complete the full course of this antibiotic to prevent antibiotic resistance. Antibiotics will typically take 4-5 days to start to work with symptom improvement. The following are my other recommendations to help with symptoms and is important for this diagnosis: 1. Take Ibuprofen or Tylenol if you do not have any allergies to these medications. If you take a blood thinner you should not take NSAIDS like Ibuprofen. These medication will help with the inflammation in your respiratory tract which should help the cough. 2. Half Peroxide/Half Water Rinses 3. Make an appointment with a dentist - tooth infection will be helped with antibiotics but they usually just continue to reoccur. The only treatment is really a root canal or tooth extraction. 4. Oralgel can help alleviate some of the symptoms - this can be purchased OTC 5. Ice is ok to help with symptoms, but do not apply heat. I would be seen again if you develop any of the following symptoms. 1. Fever > 101.0 2. Stiff neck - where you can't turn your neck 3. Trouble swallowing your saliva - drooling 4. Swelling of a lymph node in your throat that is painful to touch 5. Difficulty breathing 6. Severe Headache 7. Significant facial swelling especially if it move up close to your eye. Thank you for using [facility] today, please feel free to contact our office if you have any questions or concerns. Not available 08/27/2023 18:20:37 05/19/2024 [id number] Apply a warm compress to the affected area for 15-20 minutes at a time up to 4 times a day. Not available 05/19/2024 12:55:27 Reason for Referral None Reported. Results Created Date Observation Date Name Description Value Unit Range Abnormal Flag Note LastModifiedBy Organization Detail LastModifiedTime 10/03/20 22 10/04/2022 SARS- COV-2 , TYRELL sars-cov-2, TYRELL NOT DETECT ED not detect ed This nucle ic acid ampli ficat ion test was brittany long and its perfo rmanc e alisson cteri stics deter mined by [facility] at[facility] es. Nucle ic acid ampli ficat ion tests inclu de RT-PC R and TMA. This test has not been FDA clear ed or appro demi. This test has been autho rized by FDA under an Emerg ency Use Autho rizat ion (EUA) . This test is only autho rized for the durat ion of time the decla ratio n that circu mstan oziel exist justi fying the autho rizat ion of the emerg ency use of in vitro diagn ostic tests for detec tion of SARS- CoV-2 virus and/o r diagn osis of COVID -19 infec tion under secti on 564(b )(1) of the Act, 21 U.S.C . 360bb b-3(b ) (1), unles s the autho seth roman is termi nated or revok ed soone r. When diagn ostic testi ng is negat khris, the possi bilit y of a false negat khris resul t shoul d be consi dered in the anthony xt of a patie nt's recen t expos ures and the prese nce of clini olayinka signs and sympt oms consi stent with COVID -19. An indiv idual witho ut sympt oms of COVID -19 and who is not mayank ing SARS- CoV-2 virus would expec t to have a negat khris (not detec breanne) resul t in this assay . Not Available [facility] ([facility]) [address] [place], [address], 10/04/2022 22:06:00 10/03/20 22 10/04/2022 SARS- COV-2 , TYRELL sars-cov-2, TYRELL 2 day tat PERFOR MED Not Available [facility] ([facility]) [address] [place], [address], 10/04/2022 22:06:00 10/03/20 22 10/03/2022 rapid SARS CoV 2 Ag, QL IA, respi rator y speci men Unknown Analyte Normal =Negat khris Not Available [address], [address], 10/03/2022 15:47:20 10/03/20 22 10/03/2022 rapid SARS CoV 2 Ag, QL IA, respi rator y speci men Unknown Analyte negati ve Not Available [address], [address], 10/03/2022 15:47:20 06/01/20 23 06/04/2023 BETA STREP GP A CULTU RE beta strep gp A culture NEGATI VE Refer ence Range : Negat khris Not Available [facility] ([facility]) [address] [facility], [place], [address], 06/04/2023 16:07:11 06/01/20 23 06/01/2023 rapid strep group A, throa t Unknown Analyte negati ve Not Available _pj trimble [facility] [address] [place], [address], 06/01/2023 10:05:09 06/01/20 23 06/01/2023 rapid strep group A, throa t Unknown Analyte normal Not Available 2099_ oliverio [facility] [address] [place], [address], 06/01/2023 10:05:09 06/01/20 23 06/01/2023 rapid strep group A, throa t Unknown Analyte yes Not Available [facility]99[facility] [address] [place], [address], 06/01/2023 10:05:09 10/03/20 22 10/03/2022 XR, chest , 2 view No observ ation record ed. [facility] [address] [place], [address], 10/03/2022 17:52:54 10/03/20 22 10/03/2022 XR, chest , 2 view No observ ation record ed. [facility] [address] [place], [address], 10/03/2022 19:48:36 Result Notes None recorded. Problems Name Problem SNOMED Code Status Onset Date Resolution Date Notes Provider Name and Address Organization Details Recorded Time Asthma 574933609 Active 022 Not Available [facility] 07/28/2023 15:38:23 Problem Notes None recorded. Procedures Surgical History Date Name Laterality Status Provider Name and Address Organization Details Recorded Time procedure on skin completed BRENTON LUPICA PA - [facility] 10/03/2022 15:07:39 Imaging Results None recorded. Procedure Notes None recorded. Medical Equipment None Reported. Allergies Allergen ID Allergen Name Allergen Category Reaction Reaction Severity Criticality Documentation Date Start Date Code Code System Note Provider Name and Address Organization Details Recorded Time 54843 Tylenol medicatio n Not available Not available Not available 10/03/202219076 3 RxNorm BRENTON BANDA skylar, PA - [facility] 15:05:03 76634 house dust allergeni c extract environme nt,medica tion Not available Not available Not available 10/03/2022 21556 9 RxNorm BRENTON BANDA skylar, PA - [facility] 15:05:09 Medications Name Sig Start Date Stop Date Status Note LastModified by Organization Details LastModified Time prednisone 10 mg tablet TAKE 3 TABLETS BY MOUTH EVERY DAY FOR 5 DAYS 03/12 completed Not Available Not Available Not Available doxycycline hyclate 100 mg capsule Take 1 capsule twice a day by oral route for 7 days. 2023 active Not Available Not Available Not Avai lable ibuprofen 800 mg tablet Take 1 tablet 3 times a day by oral route as needed for 10 days. 05/19 completed Not Available Not Available Not Available prednisone 20 mg tablet TAKE 2 TABLETS BY MOUTH EVERY DAY FOR 5 DAYS 05/19 completed Not Available Not Available Not Available amoxicillin 875 mg tablet Take 1 tablet twice a day by oral route for 5 days. 05/19 completed Not Available Not Available Not Available omeprazole 20 mg capsule,del ayed release TAKE 1 CAPSULE BY MOUTH EVERY DAY FOR 30 DAYS 05/19 completed Not Available Not Available Not Available albuterol sulfate HFA 90 mcg/actuati on aerosol inhaler Inhale 2 puffs every 4 hours by inhalatio n route as needed. 08/27 completed Not Available Not Available Not Available ondansetron 4 mg disintegrat ing tablet DISSOLVE 1 TABLET ORALLY EVERY 6 TO 8 HOURS NEEDED FOR NAUSEA AND VOMITING 03/12 completed Not Available Not Available Not Available fluticasone propionate 50 mcg/actuati on nasal spray,suspe nsion [place] 2 sprays every day by intranasa l route for 90 days. 2023 active Not Available Not Available Not Avai lable amoxicillin 875 mg-karen sarah clavulanate 125 mg tablet TAKE 1 TABLET BY MOUTH EVERY 12 HOURS FOR 10 DAYS 03/12 completed Not Available Not Available Not Available cyclobenzap rine 5 mg tablet TAKE 1 TABLET BY MOUTH 3 TIMES A DAY NEEDED FOR SPASM FOR 7 DAYS 03/12 completed Not Available Not Available Not Available ProAir HFA 08/27 completed Not Available Not Available Not Available Symbicort 80 mcg-4.5 mcg/actuati on HFA aerosol inhaler active Not Available Not Available Not Available Gavilax 17 gram/dose oral powder 03/12 completed Not Available Not Available Not Available Asmanex HFA 100 mcg/actuati on aerosol inhaler 2 PUFFS INHALATIO N 2 TIMES A DAY,INSTR :RINSE MOUTH AND THROAT AFTER USE active Not Available Not Available No t Available Vitals Date Recorded Body height Body mass index (BMI) Body weight Oxygen saturation Oxygen saturation in Arterial blood by Pulse oximetry Heart rate Respiratory rate Body temperature Systolic And Diastolic Provider Name and Address Organization Details Last Updated DateTime 4 172.72 cm 36.9 kg/m2 775279. 15 g 99 % 99 % 103 /min 18 /min 98.9 [degF] 129/85 mm[Hg] Linette Lopez PA - [facility] 4 18:42:35 Date Recorded Body height Body mass index (BMI) Body weight Body temperature Respiratory rate Pain severity - 0-10 verbal numeric rating [Score] - Reported Oxygen saturation Oxygen saturation in Arterial blood by Pulse oximetry Heart rate Systolic And Diastolic Provider Name and Address Organization Details Last Updated DateTime 4 172.72 cm 36.8 kg/m2 219384. 35 g 98.8 [degF] 18 /min 6 98 % 98 % 82 /min 131/74 mm[Hg] Alicia Morrell PA - [facility] 4 13:01:00 Date Recorded Body height Body mass index (BMI) Body weight Pain severity - 0-10 verbal numeric rating [Score] - Reported Oxygen saturation Oxygen saturation in Arterial blood by Pulse oximetry Heart rate Respiratory rate Body temperature Systolic And Diastolic Provider Name and Address Organization Details Last Updated DateTime 3 172.72 cm 38 kg/m2 249497. 09 g 10 98 % 98 % 75 /min 20 /min 98.1 [degF] 146/91 mm[Hg] Nataly Marrero PA - [facility] 3 10:06:24 Date Recorded Body height Body mass index (BMI) Body weight Pain severity - 0-10 verbal numeric rating [Score] - Reported Oxygen saturation Oxygen saturation in Arterial blood by Pulse oximetry Heart rate Respiratory rate Body temperature Systolic And Diastolic Provider Name and Address Organization Details Last Updated DateTime 3 172.72 cm 35 kg/m2 239148. 25 g 10 99 % 99 % 76 /min 18 /min 97.7 [degF] 132/66 mm[Hg] Lenora Rod PA - [facility] 3 17:34:19 Date Recorded Body height Body mass index (BMI) Body weight Body temperature Oxygen saturation Oxygen saturation in Arterial blood by Pulse oximetry Heart rate Respiratory rate Systolic And Diastolic Provider Name and Address Organization Details Last Updated DateTime 2 172.72 cm 38 kg/m2 531679. 09 g 98.4 [degF] 96 % 96 % 97 /min 18 /min 120/81 mm[Hg] BRENTON BANDA PA - [facility] 2 15:10:07 Social History Question Answer Notes LastModified by Organizat ion Details LastModified Time Tobacco Smoking Status Never Smoker BRENTON cheng PA - [facility] 10/03/2022 15:07:02 Have You Had A Flu Shot This Season? No Unsure [email or web address] Information not available 08/27/2023 If No, Would You Like A Flu Shot Today? No Information not available 03/12/2024 What Is Your Water Source? City Information not available 03/12/2024 What Is Your Heat Source? Other Information not available 03/12/2024 Have You Had Direct Contact, Or Contact During Intimacy, With Monkeypox Rash, Scabs, Or Body Fluids From A Person With Monkeypox? No [email or web address] Information not available 06/01/2023 Have You Recently Traveled Abroad? No [email or web address] Information not available 10/03/2022 Are You Currently In School? No Information not available 03/12/2024 Sex: Unknown Functional Status Question Answer Note LastModified by Organizat ion Details LastModified Time Do you use any illicit or recreational drugs? No [email or web address] Information not available 10/03/2022 Do you or have you ever used any other forms of tobacco or nicotine? No [email or web address] Information not available 10/03/2022 What is your level of alcohol consumption? None Information not available 05/19/2024 Are you currently employed? Yes Information not available 03/12/2024 Mental Status None recorded. Family History Relationship Description Onset Age of this Age Resolved Age Notes LastModified by Organization Details LastModified Time Unspecified Relation Hypercholest erolemia [email or web address] Not available 2021 15:06:16 Unspecified Relation Hypertensive disorder [email or web address] Not available 2021 15:06:24 Unspecified Relation Diabetes mellitus [email or web address] Not available 2021 15:06:33 Medical History No medical history recorded. Immunizations Vaccine Type Date Status Note Provider Nam e and Address Organization Details Recorded Time Tdap 12/03/2021 completed FRANK Maldonado - [facility] 06/01/2023 10:04:30 Past Encounters Encounter ID Performer Location Encounter Start Date Encounter Closed Date Diagnosis/Indication Diagnosis SNOMED-CT Code Diagnosis ICD10 Code Diagnosis IMO Codes Diagnosis Note [id number] [address] [address] [address] 12/26/2021 18:58:49 12/26/2021 19:34:29 [id number] [address] [place] [address] 04/17/2022 11:45:36 04/17/2022 13:07:33 [id number] [address] [place] [address] 02/08/2021 16:01:09 02/08/2021 17:03:00 [id number] [address] [place] [address] 02/04/2021 14:37:44 02/04/2021 16:33:28 [id number] [facility] [place] [address] 11/14/2021 14:50:11 11/14/2021 16:38:25 [id number] [place] [address] [place] [address] 10/03/2022 13:37:54 10/03/2022 16:09:00 Cough [id number] R05.9 [id number] [place] [address] [place] [address] 06/01/2023 09:22:49 06/01/2023 10:47:47 Acute pharyngitis 824612089 J02.9 Based on your Presentati on, Exam, and Lab Testing you are being diagnosed with Tonsilliti s Your Rapid Strep Test was Negative.D ifferentia l for you would be mononucleo sis or an early para tonsillar abscess.We reviewed the reasons you should go to the ER. If symptoms do not improve after 7 days - return so we can check for mono. I am going to prescribe you and antibiotic to cover this infection. Please be sure to complete the full course of this antibiotic to prevent antibiotic resistance . Antibiotic s will typically take 4-5 days to start to work with symptom improvemen t. The following are my other recommenda tions to help with symptoms and is important for this diagnosis: 1. Do not share any food or drinks - strep is passed through direct saliva exchange (NOT IN THE AIR) 2. Change your toothbrush in 3-4 days so that you don't re-infect yourself after you complete the antibiotic . 3. Take Ibuprofen or Tylenol if you do not have any allergies to these medication s. If you take a blood thinner you should not take NSAIDS like Ibuprofen. These medication will help with the inflammati on in your respirator y tract which should help the cough. (I would alternate between Tylenol 650 mg and your Ibuprofen 600 mg every 4 hours) 4. Do not take any Cold Medication s that have a Decongesta nt in it - this will dry out your throat and make the sore throat worse. 5. Drinking Hot Tea with honey can help coat and soothe your throat. 6. You would be considered contagious for the next 24-48 hours, or until fever resolves. I would be seen again if you develop any of the following symptoms. ER is the best place. 1. Fever > 101.0 2. Stiff neck - where you can't turn your neck 3. Trouble swallowing your saliva - drooling 4. Swelling of a lymph node in your throat that is painful to touch 5. Difficulty breathing 6. Severe Headache You are being prescribed a Steroid. You must take this with food. While on a Steroid, you should not take Ibuprofen or any other NSAID because this will cause stomach irritation . Thank you for using [facility] today, please feel free to contact our office if you have any questions or concerns. [id number] FRANK WEBB [address] [place] [address] 08/27/2023 17:01:13 08/27/2023 18:23:12 Toothache [id number] K08.89 [id number] FRANK CANTRELL [address] [place] [address] 03/12/2024 18:33:40 03/12/2024 18:49:11 Acute serous otitis media of bilateral ears [id number] 863883 H65.03 You have fluid in your middle ears, this is likely from sinus congestion and/or eustachian tube dysfunctio n.Use nasal spray like flonase or nasonex to help clear things out. - Decongesta nts if tolerated. - Recommend recheck if fever develops or no improvemen t in 5-7 days.- I recommend having your ear rechecked in in 2 weeks with your primary provider to verify issues have-.Use a cool mist humidifier in the room that you sleep to add moisture to the air, which should soothe the airways and help loosen any mucus that may be present.-C all 911 or proceed to nearest Emergency Department if you develop shortness of breath, chest pain, severe headache or other symptoms that concern you. I have also sent in an antibiotic for you to pick pack worker if your symptoms are worsening over the next 24 hrs. You should start taking those antibiotic s if your ear pain is worsening or you start to have fevers. [id number] FRANK CANTRELL [address] [place] [address] 05/19/2024 12:48:40 05/19/2024 13:07:34 Abscess of groin 08076286 L02.214 Based on exam and presentati on you are being diagnosed with a skin abscess. I am going to prescribe you and antibiotic to cover this infection. Please be sure to complete the full course of this antibiotic to prevent antibiotic resistance . I recommend taking a Probiotic with this course of antibiotic s to help to re colonize with good bacteria. Antibiotic s will typically take 4-5 days to start to work with symptom improvemen t. The following are my other recommenda tions to help with symptoms and is important for this diagnosis: 1. Put warm compresses on the affected area regularly - this will help the infection come to the surface.2. No creams or lotions on the affected area this includes neosporin. 3. Try not to squeeze the area - but you can apply light pressure to the area after you have applied a warm compress for about 15 minutes.4. Ok for Ibuprofen or Tylenol for the pain if you are not allergic. Do not take Ibuprofen or any NSAID if you are on a blood thinner. Return if you feel that the abscess is worsening and may need to be drained. At this time, I think your treatment will be successful with just an antibiotic . Ideally this abscess will open on its own and drain. I would be seen again if you develop any of the following symptoms.1 . Fever > 101.02. Worsening Pain3. Increased swelling4. Increased Redness Thank you for using [facility] today, please feel free to contact our office if you have any questions or concerns. Health Concerns Section Related Observation LastModified by Organization Jair ls LastModified Time None Recorded Concern Status LastModified by Organization Details LastModified Time None Recorded Advance Directives Directive None Recorded Payers Insurance Date Sequence Insurance Name Policy Number Policy Gupta Covered Member ID Gupta Member ID Guarantor Name 05/19/2024 1 [employer] (MEDICAID REPLACEMENT - HMO) [id number] Jean Claude Barriga [id number] Jean Claude Barriga 05/19/2024 2 [facility] (MEDICAID REPLACEMENT - HMO) Jean Claude Barriga [id number] Jean Claude Barriga 05/19/2024 2 MEDICAID-[place]: [facility] Jean Claude Barriga [id number] Jean Claude Barriga 05/19/2024 1 [facility] [id number] Jean Claude Z Barriga [id number] Jean Claude Barriga Notes Date Note Type Note Provider Name and Address Organization Details Recorded Time 2 text/html CoughReported by PatientHPIFor quality, patient reportsdry. For associated symptoms, patient reportswheezingbut reportsno fever,no chills,no chest pain,no heartburn,no nausea, andno vomiting. For severity, patient reportsmoderate. For duration, patient reportsconstant. For timing, patient reportssudden. Pt c/o cough and congestion x 2 days. +wheezing and sob with exertion. Requesting an xray. Denies fever. No known covid exposure. Yola Davenport MD [address] [place], [address], PA - [facility] 10/03/2022 17:05:24 3 text/html Sore throatReported by PatientSore ThroatFor source of patient information, patient reportsinformation obtained from patientandpatient arrived at urgent care ambulatory. For location, patient reportsthroat. For severity, patient reportsmoderate. For quality, patient reportssharpandhurts to swallow. For onset/timing, patient reports2 days. For associated symptoms, patient reportsno cough,no sputum production,no shortness of breath,no wheezing,no sinus pain,no vomiting,no nausea, andno hoarseness. Celina Stephens MD [address] [place], [address], [place] - [facility] 06/01/2023 10:44:50 3 text/html Ear Pain Brief HPIReported by [id number] y.o male was seen at Dentist today. Due to exam, patient was advised he'll need wisdom teeth extraction but doesn't have appt until OCT. He was supposed to get meds but didn't. Now has bilateral upper jaw pain from exam. Pt denies sweling or fever. Pt speaking normal. FRANK WEBB [address] [place], [id number], [place] - [facility] 08/28/2023 08:33:29 4 text/html 23 y/o male with congestion, cough, ear pressure for the past 2 days. Used Dayquil once without improvement. Got ear infections a lot as a kid FRANK Plunkett [address] [place], [id number], [place] - [facility] 03/12/2024 18:51:51 4 text/html 23 y/o male here with draining, painful lump to his L groin for 3 days, popped it last night in the shower, lots of pus and blood, feeling a bit better now, but still draining and sore FRANK Plunkett [address] [place], [phone], [place] - [facility] 05/19/2024 13:08:12
--- OUTSIDE RECORDS SUMMARY | 2025-08-17 18:24 | XMS_ITS | Clinical Summary ---
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 Role Phone Physician, No Pcp Primary Care Provider Unavaila ble Allergies Active Allergy Reactions Criticality Noted Date Comments Acetaminophen 08/15/2025 Medications No known medications Encounters Date Type Department Care Team Description 08/15/2025 10:09 PM EST - 08/15/2025 10:14 PM EST Emergency [facility] Emergency [address] [place] [address] Chest pain of unknown etiology (Primary Dx) Discharge Disposition: Home or Self Care from Last 3 Months Medical History Medical History Date Comments Patient denies medical problems Social History Tobacco Use Types Packs/Day Years Used Date Smoking Tobacco: Never Assessed Sex and Gender Information Value Date Recorded Sex Assigned at Not on file Legal Sex Male 1:59 PM EST Gender Identity Not on file Sexual Orientation Not on file Obstetrics History Last Filed Vital Signs Vital Sign Reading [...] Mass Index 37.25 08/15/2025 5:15 PM EST Plan of Treatment Health Maintenance Due Date Last Done Comments HPV Vaccines (1 - Male 3-dos e series) 2014 Hepatitis A Vaccines (1 of 2 - Risk 2-dose series) 2018 Hepatitis B Vaccines (1 of 3 - 19+ 3-dose series) 2018 Pneumococcal Vaccine: Pediat rics (0 to 5 Years) and At-Risk Patients (6 to 49 Years) (1 of 2 - PCV) 2018 Depression Screening 10/13/2024 COVID-19 Vaccine (2 - 2024-2 6 season) 2025 07/26/2023 Influenza Vaccine (#1) 2025 Cholesterol Screening (Lipid Panel) 08/15/2025 HIV Screening 08/15/2025 Hepatitis C Screening 08/15/2025 Social Influencers of Health Screening 08/15/2025 DTaP,Tdap,and Td Vaccines (2 - Td or Tdap) 12/03/2031 12/03/2021 RSV Immunization Adult Patie nts (1 - 1-dose 75+ series) 2074 HIB Vaccines Aged Out No longer eligi ble based on patient's age to complete this topic IPV Vaccines Aged Out No longer eligi ble based on patient's age to complete this topic MMR Vaccines Aged Out No longer eligi ble based on patient's age to complete this topic Meningococcal ACWY Vaccine Aged Out N o longer eligible based on patient's age to complete this topic Meningococcal B Vaccine Aged Out No l onger eligible based on patient's age to complete this topic RSV Immunization Patients Un sylvia 20 months Aged Out No longer eligible b ased on patient's age to complete this topic Varicella Vaccines Aged Out No longer eligible based on patient's age to complete this topic Procedures Procedure Name Priority Date/Time Associated Diagnosis Comments ECG ANNOTATED 08/16/2025 XR CHEST 2 VIEWS STAT 08/15/2025 7:49 PM EST CBC WITH AUTO DIFFERENTIAL STAT 08/15/2025 7:43 PM EST LIPASE STAT 08/15/2025 7:43 PM EST MAGNESIUM STAT 08/15/2025 7:43 PM EST TROPONIN I HIGH SENSITIVITY STAT 08/15/2025 7:43 PM EST COMPREHENSIVE METABOLIC PANEL STAT 08/15/2025 7:43 PM EST CBC AND DIFFERENTIAL STAT 08/15/2025 7:43 PM EST ECG 12-LEAD STAT 08/15/2025 5:14 PM EST from Last 3 Months Results * ECG-Annotated (08/16/2025) us Provider Onbase [...] Signed Date: 08/16/2025 07:30 ET Workstation ID: [id number] Transcribed By: Self Edit Transcribed Date: 08/16/2025 [...] the thoracolumbar junction region. Procedure Note Alejandro Rutherford MD - 08/16/2025 EXAMINATION: CHEST CLINICAL INFORMATION: Chest [...] Signed Date: 08/16/2025 07:30 ET Workstation ID: [id number] Transcribed By: Self Edit Transcribed Date: 08/16/2025 07:28 ET Emelyn MARIE IMG XR PROCEDURES Final Result * Troponin I high sensitivity (08/15/2025 7:43 PM EST) [facility] High Sensitivity Troponin I 3 <=79 ng/L LAB CHEMISTRY METHOD 08/15/2025 8:[address] [facility] Blood Venous blood specimen / Unknown Venipuncture / Unknown 08/15/2025 7:43 PM EST 08/15/2025 8:[address] [facility] - 08/15/2025 8:38 PM EST High levels of biotin in samples may falsely decrease hsTroponin values. Use caution when interpreting hsTroponin results in patients taking biotin who exhibit renal impairment (eGFR <60) or in patients taking more than 20 mg/day of biotin. Emelyn MAIRE LAB BLOOD ORDERABLES Final Res ult [facility] [address] [place] [address], [place] [phone] * (ABNORMAL) CBC auto differential (08/15/2025 7:43 PM EST) [facility] WBC 12.4(H) 4.8 - 10.8 K/[facility] LAB HEMETOLOGY METHOD 08/15/2025 8:[address] [facility] RBC 6.00(H) 4.50 - 5.50 M/[facility] LAB HEMETOLOGY METHOD 08/15/2025 8:14 PM [facility] Hemoglobin 16.8 13.5 - 17.5 g/dL LAB HEMETOLOGY METHOD 08/15/2025 8:14 PM [facility] Hematocrit 50.6 42.0 - 54.0 % LAB HEMETOLOGY METHOD 08/15/2025 8:14 PM [facility] MCV 84.9 79.0 - 98.0 FL LAB HEMETOLOGY METHOD 08/15/2025 8:14 PM [facility] MCH 28.2 27.0 - 32.0 pcg LAB HEMETOLOGY METHOD 08/15/2025 8:14 PM [facility] MCHC 33.2 32.0 - 37.0 g/dL LAB HEMETOLOGY METHOD 08/15/2025 8:14 PM [facility] RDW 13.2 11.0 - 15.0 % LAB HEMETOLOGY METHOD 08/15/2025 8:14 PM [facility] Platelets 254 130 - 400 K/mcL LAB HEMETOLOGY METHOD 08/15/2025 8:14 PM [facility] MPV 10.0 7.0 - 11.0 FL LAB HEMETOLOGY METHOD 08/15/2025 8:14 PM [facility] NRBC 0.0 <1.0 % LAB HEMETOLOGY METHOD 08/15/2025 8:14 PM [facility] NRBC Absolute 0.00 <0.10 K/mcL LAB HEMETOLOGY METHOD 08/15/2025 8:14 PM [facility] Neutrophils Relative 64.4 % LAB HEMETOLOGY METHOD 08/15/2025 8:14 PM [facility] Lymphocytes Relative 23.1 % LAB HEMETOLOGY METHOD 08/15/2025 8:14 PM [facility] Monocytes Relative 8.6 % LAB HEMETOLOGY METHOD 08/15/2025 8:[address] [facility] Eosinophils Relative 3.0 % LAB HEMETOLOGY METHOD 08/15/2025 8:14 PM [facility] Basophils Relative 0.6 % LAB HEMETOLOGY METHOD 08/15/2025 8:14 PM [facility] Immature Granulocytes Relative 0.3 % LAB HEMETOLOGY METHOD 08/15/2025 8:14 PM [facility] Neutrophils Absolute 7.95(H) 1.50 - 7.00 K/mcL LAB HEMETOLOGY METHOD 08/15/2025 8:14 PM [facility] Lymphocytes Absolute 2.86 1.00 - 5.00 K/mcL LAB HEMETOLOGY METHOD 08/15/2025 8:14 PM [facility] Monocytes Absolute 1.07(H) 0.20 - 1.00 K/mcL LAB HEMETOLOGY METHOD 08/15/2025 8:[address] [facility] Eosinophils Absolute 0.37 0.00 - 0.50 K/mcL LAB HEMETOLOGY METHOD 08/15/2025 8:14 PM [facility] Basophils Absolute 0.08 0.00 - 0.20 K/mcL LAB HEMETOLOGY METHOD 08/15/2025 8:14 PM [facility] Immature Granulocytes Absolute 0.04(H) 0.00 - 0.03 K/mcL LAB HEMETOLOGY METHOD 08/15/2025 8:14 PM [facility] Blood Venous blood specimen / Unknown Venipuncture / Unknown 08/15/2025 7:43 PM EST 08/15/2025 8:06 PM EST us Emelyn MARIE LAB BLOOD ORDERABLES Final Res ult [facility] [address] [place] [address], [place] [phone] * Magnesium (08/15/2025 7:43 PM EST) Pathologist [facility] Magnesium 2.3 1.9 - 2.6 mg/dL LAB CHEMISTRY METHOD 08/15/2025 8:[address] [facility] Blood Venous blood specimen / Unknown Venipuncture / Unknown 08/15/2025 7:43 PM EST 08/15/2025 8:05 PM EST Emelyn MARIE LAB BLOOD ORDERABLES Final Res ult Performing Organization Address City/[facility]/ZIP Co de Phone Number [facility] [address] [place] [address], [place] [phone] * Lipase (08/15/2025 7:43 PM EST) [facility] Lipase 31 13 - 75 unit/L LAB CHEMISTRY METHOD 08/15/2025 8:[address] [facility] Blood Venous blood specimen / Unknown Venipuncture / Unknown 08/15/2025 7:43 PM EST 08/15/2025 8:05 PM EST Emelyn MARIE LAB BLOOD ORDERABLES Final Res ult [facility] [address] [place] [address], [place] [phone] * Comprehensive metabolic panel (08/15/2025 7:43 PM EST) Pathologist [facility] Sodium 138 133 - 145 mmol/L LAB CHEMISTRY METHOD 08/15/2025 8:[address] [facility] Potassium 4.0 3.5 - 5.5 mmol/L LAB CHEMISTRY METHOD 08/15/2025 8:[address] [facility] Chloride 103 96 - 110 mmol/L LAB CHEMISTRY METHOD 08/15/2025 8:[address] [facility] CO2 32 21 - 32 mmol/L LAB CHEMISTRY METHOD 08/15/2025 8:38 PM [facility] Anion Gap 3 3 - 11 LAB CHEMISTRY METHOD 08/15/2025 8:38 PM [facility] Glucose 97 70 - 100 mg/dL LAB CHEMISTRY METHOD 08/15/2025 8:38 PM [facility] BUN 11 5 - 25 mg/dL LAB CHEMISTRY METHOD 08/15/2025 8:38 PM [facility] Creatinine 1.02 0.70 - 1.30 mg/dL LAB CHEMISTRY METHOD 08/15/2025 8:38 PM [facility] eGFR 105 >=60 mL/min/1. 73m2 LAB CHEMISTRY METHOD 08/15/2025 8:38 PM [facility] Comment:Calculation based on the Chronic Kidney Disease Epidemiology Collaboration (CKD-EPI) equation refit without adjustment for race. BUN/Creatinine Ratio 10.8 LAB CHEMISTRY METHOD 08/15/2025 8:38 PM [facility] Calcium 9.5 8.5 - 10.5 mg/dL LAB CHEMISTRY METHOD 08/15/2025 8:38 PM [facility] AST (SGOT) 19 10 - 42 unit/L LAB CHEMISTRY METHOD 08/15/2025 8:38 PM [facility] ALT (SGPT) 31 10 - 60 unit/L LAB CHEMISTRY METHOD 08/15/2025 8:38 PM [facility] Alkaline Phosphatase 96 42 - 121 unit/L LAB CHEMISTRY METHOD 08/15/2025 8:38 PM [facility] Total Protein 7.4 6.0 - 8.0 g/dL LAB CHEMISTRY METHOD 08/15/2025 8:38 PM [facility] Albumin 4.2 3.2 - 5.0 g/dL LAB CHEMISTRY METHOD 08/15/2025 8:38 PM [facility] Total Bilirubin 0.5 0.0 - 1.4 mg/dL LAB CHEMISTRY METHOD 08/15/2025 8:[address] [facility] Blood Venous blood specimen / Unknown Venipuncture / Unknown 08/15/2025 7:43 PM EST 08/15/2025 8:05 PM EST Emelyn MARIE LAB BLOOD ORDERABLES Final Res ult Performing Organization Address City/[facility]/ZIP Co de Phone Number [facility] [address] [place] [address], [place] [phone] * ECG 12 lead (08/15/2025 5:14 PM EST) Ventricular Rate ECG 61 BPM GEMUSE Atrial Rate 61 BPM GEMUSE P-R Interval 150 ms GEMUSE QRS Duration 84 ms GEMUSE Q-T Interval 358 ms GEMUSE QTc 360 ms GEMUSE P Wave Dalton 46 degrees GEMUSE R Dalton 10 degrees GEMUSE T Dalton 34 degrees GEMUSE ECG Interpretation Normal sinus rhythm with sinus arrhythmia Normal ECG When compared with ECG of 31-JAN-2012 00:45, PREVIOUS ECG IS PRESENT Confirmed by Gray KRISHNA YUFENG ([id number]) on 08/15/2025 8:12:15 PM GEMUSE 08/15/2025 5:14 PM EST 08/15/2025 8:12 PM EST Emelyn MAREI ECG ORDERABLES Final Result Performing Organization Address City/[facility]/ZIP Co de Phone Number GEMUSE from Last 3 Months Care Teams [employer] Engineer Relationship Specialty Start Date End Date Physician, No Pcp PCP - General 08/15/25
== END 2025-08-17 17:36 | disposition home or self-care (01) ==
PROVIDERS: Physician Assistant; Physician Assistant Medical; Emergency Provider Student in an Organized Health Care Education/Training Program
DX: R41.9 Unspecified symptoms and signs involving cognitive functions and awareness (principal); H60.93 Unspecified otitis externa, bilateral; J32.9 Chronic sinusitis, unspecified; R07.9 Chest pain, unspecified; R00.1 Bradycardia, unspecified; R20.2 Paresthesia of skin
CPT/HCPCS: 36415; 71045; 80053; 83880; 84484; 85025; 85379; 85610; 85730; 93005; 99283; 99284

== ENCOUNTER → 2025-08-17 12:45 | Outpatient (BNV) | payer OTHER, SELFPAY | PROVIDERS: Emergency Provider Student in an Organized Health Care Education/Training Program; Visit Provider Internal Medicine Cardiovascular Disease | DX: R00.1 Bradycardia, unspecified (principal) | CPT/HCPCS: 93010 ==

== ENCOUNTER → 2025-08-17 14:46 | Outpatient (BNV) | payer OTHER, SELFPAY | PROVIDERS: Visit Provider Radiology Diagnostic Radiology | DX: Z03.89 Encounter for observation for other suspected diseases and conditions ruled out (principal) | CPT/HCPCS: 71045 ==

== ENCOUNTER 2025-09-04 14:50 | Emergency (ER) | payer OTHER, SELFPAY ==
--- NOTE | ~2025-09-04 | XR_ITS ---
CLINICAL HISTORY: dizziness 2 view chest x-ray Comparison: CR/SR - XR CHEST 1 VIEW - 08/17/25 15:02 EST Findings: Heart size is normal. No acute fracture. IMPRESSION: 1. No acute findings. This document has been electronically signed by: Karlie Keita MD on 09/04/2025 17:43:06
--- NOTE | 2025-09-04 14:51 | ECG_ITS ---
Test Reason : chest pain/ dizziness Blood Pressure : */* mmHG Vent. Rate : 76 BPM Atrial Rate : 76 BPM P-R Int : 156 ms QRS Dur : 80 ms QT Int : 346 ms P-R-T Axes : 26 -19 28 degrees QTcB Int : 389 ms Normal sinus rhythm Minimal voltage criteria for LVH, may be normal variant ( R in aVL ) Borderline ECG When compared with ECG of 17-Aug-2025 12:49, Vent. rate has increased by 27 bpm Referred By: Generic ED Physician Electronically Signed By: Yohan Lopez
[2025-09-04 15:15] VITALS: BP 131/86; PULSE 77; RESP 16; TEMP 36.6; O2SAT 95; BMI 29.6
--- NOTE | 2025-09-04 15:17 | ED_ITS ---
HPI - General Adult General Chief complaint: Dizziness Stated complaint: Dizziness, chest pain Time Seen by Provider: 09/04/25 16:36 Source: patient, RN notes reviewed and old records reviewed Mode of arrival: ambulatory Limitations: no limitations History of Present Illness ED Provider: Kevin HOFFMAN narrative: Patient is a 25-year-old male with past medical history of childhood obesity, gynecomastia, panniculectomy, fatty liver, smoking, anxiety presenting to the emergency department with complaint of ongoing chest pain, dizziness and lightheadedness since prior visit on 08/17/25. States that when he stands to get out of bed in the morning he becomes acutely dizzy which he describes as the room spinning. Also complains of feeling lightheaded as though he may pass out while gently walking on the treadmill at the gym. States he has cut back on his exercise at the gym due to this as he has concerned about passing out. At times his chest pain has associated dyspnea. Has been taking hydroxyzine which he was prescribed in the past for anxiety which he reports helps the symptoms and feels his dizziness and lightheadedness is worse when he does not take this medication. Reports seeing a car rental agency manager as a child but has not seen a car rental agency manager as an adult. Denies any episodes of full syncope. Denies recent travel or surgery. Denies recent calf pain or swelling. Admits to occasional cannabis use. States he is currently on amoxicillin for ear infections as it was suspected at urgent care this could be related to his dizziness. complaint: Chest pain, dizziness, lightheadedness Onset (ago): week(s) Related Data Previous Rx's ?Medication ?Instructions ?Recorded cyclobenzaprine 5 mg tablet 5 mg PO TID PRN muscle spa sm 7 03/24/23 days #21 tabs omeprazole 20 mg capsule,delayed 20 mg PO DAILY 30 day s #30 caps 08/22/23 release ondansetron 4 mg disintegrating 4 mg PO Q6-8H PRN naus ea and 08/22/23 tablet vomiting #14 tabs hydroxyzine HCl 25 mg tablet 25 mg PO TID PRN anxiety #30 tabs 06/08/24 amoxicillin 875 mg-potassium 1 tab PO Q12H 7 days #14 tabs 08/17/25 clavulanate 125 mg tablet ciprofloxacin 0.3 %-dexamethasone 4 drp otic (ears) Q1 2H 7 days #7.5 08/17/25 0.1 % ear drops,suspension mL hydroxyzine pamoate 25 mg capsule 25 mg PO TID PRN anx iety #30 caps 08/17/25 Allergies Allergy/AdvReac Type Severity Reaction Status Date / Time acetaminophen (From TYLENOL) Allergy Mild RASH Verified 09/04/25 15:15 Review of Systems 2 Review of Systems: As per HPI Yes all other systems are reviewed and are negative Constitutional: Constitutional: Reports as per HPI [facility] Past Medical History Medical History No known health problems Social History Social History Alcohol intake: never Patient Tobacco Use Status: Never used Tobacco Smoked in Last 30 Days: Yes Use of substances other than those prescribed or required for medical reasons: Yes Substance Use Type: Marijuana Substance Use Frequency: Occasionally Advance Directives: No Advance Directives Information Provided: No Physical Exam ED Vital Signs: Vital Signs - 24 hr 09/04/25 15:15 09/04/25 17:05 Temperature 97.8 F 97.8 F Pulse Rate 77 77 Respiratory Rate 16 16 Blood Pressure 131/86 131/86 Pulse Oximetry 95 95 Oxygen Delivery Method Room Air Room Air BMI result Body Mass Index 29.6 Vital signs have been reviewed and appear to be correct. Blood pressure normal. Heart rate normal. Respiratory rate normal. Temperature normal. Oxygen saturation normal. Const General: cooperative, healthy appearing and no acute distress Orientation/consciousness: oriented to person, oriented to place, oriented to time and patient oriented x3 Limitations: no limitations [facility] Head: Yes normocephalic and Yes atraumatic Ears: hearing grossly normal bilaterally, external ears normal, EAC's normal, mastoids normal bilaterally, no periauricular adenopathy and TM abnormal erythematous bilateral; not bulging and not with effusion General nose exam: Normal external nose present Face and sinus: Yes face symmetric Mouth: oropharynx normal and moist mucous membranes Throat: Yes uvula midline Eyes Pupils: Equal, round and reactive pupils present Neck Neck: Yes normal visual inspection and Yes supple Chest Chest palpation & inspection: tenderness sternum Resp Effort & Inspection: normal respiratory effort and able to speak in complete sentences Auscultation: clear to auscultation bilaterally Cardio Rate: regular rate Rhythm: regular rhythm Heart sounds: S1 normal heart sound present and S2 normal heart sound present GI Inspection: Yes scar (Well-healed surgical scar to upper abdomen) Palpation (GI): Soft to palpation and nontender Auscultation: normoactive bowel sounds General: Yes no CVA tenderness Back/Spine/Pelvis Back: no CVA tenderness Skin General skin exam: elasticity normal and turgor normal Neuro General: oriented to person, oriented to place, oriented to time, patient oriented x3, moves all extremities, no focal motor deficits and CN's II-XI intact bilaterally Cranial nerves: Yes Equal, round and reactive pupils present Cognition (Neuro): normal cognition Extrem General: Yes full ROM, Yes no pedal edema and Yes no calf tenderness Psych Mental Status: mental status grossly normal Affect: normal affect Thought process: Normal thought process present Course Course Course Narrative: Rapid medical examination performed in triage by Shani Giles PA-C: Patient is a 25 year old assigned male at presenting to the emergency department with dizziness. Detailed physical exam and review of systems are deferred to the manager primary. EKG, labs, and aimaging ordered. Patient placed back in the waiting room pending room availability and results. Medical Decision Making Medical Decision Making MDM Narrative: Patient is a 25-year-old male with past medical history of childhood obesity, gynecomastia, panniculectomy, fatty liver, smoking, anxiety presenting to the emergency department with complaint of ongoing chest pain, dizziness and lightheadedness since prior visit on 08/17/25. On exam patient is awake, A+Ox3, VS WNL, afebrile, normal neurological exam without focal deficits, physical exam findings as above. Given reported symptoms and physical exam findings, initial differential includes but is not limited to anxiety, cardiac arrhythmia, electrolyte abnormality, anemia. Do not suspect ACS, PE. Patient had extensive evaluation on visit from 08/17 including negative D-dimer. PERC 0. Physical exam notable for erythematous TMs bilaterally without effusion or bulging, do not suspect AOM. Labs notable for no leukocytosis, no anemia, negative troponin. Viral serology negative. X-ray chest notable for no cardiomegaly, pneumonia, pneumothorax. My interpretation is in agreement with the radiologist's interpretation. EKG shows normal sinus rhythm. All results discussed with patient and questions answered. Had lengthy discussion with patient that given his ongoing symptoms, the next step would be to follow up with cardiology for further evaluation of his chest pain and lightheadedness/dizziness. States he also does not have a PCP as he recently obtained health insurance. Will provide resources for establishing care with a PCP. Discussed that no emergent concerning findings were present at today's visit. Advised patient to continue with his hydroxyzine as this seems to be helpful with his symptoms. Return precautions discussed at bedside. Patient verbalized understanding of and agreement with plan. Differential Diagnosis Differential Diagnoses: The differential diagnosis associated with the presentation includes as per [facility] Admission/Observation Consideration of admission/observation: Escalation of care including admission/observation considered Patient would have been admitted to the hospital and transferred to appropriate facility had their clinical presentation warranted hospital admission. Lab Data [facility] Lab Attestation statement: I reviewed the patient's lab results. as per [facility] 09/04/25 15:37 09/04/25 15:37 Labs: Lab Results 09/04/25 Range/Units 15:37 WBC 9.8 (4.8-10.8) X10*3/uL RBC 5.84 H (4.60-5.80) X10*6/uL Hgb 16.9 (14.0-18.0) g/dl Hct 49.1 (42.0-52.0) % MCV 84.1 (80.0-98.0) fL MCH 28.9 (27.0-33.0) pg MCHC 34.4 (31.0-36.0) g/dl RDW 12.8 (11.0-16.0) % Plt Count 239 (160-400) X10*3/uL MPV 10.2 (9.4-12.4) fL Immature Gran % (Auto) 0.4 (0.0-0.4) % Neut % (Auto) 60.9 (45-73) % Lymph % (Auto) 25.2 (20-40) % Schleicher % (Auto) 9.9 (2-11) % Eos % (Auto) 3.1 (0-4) % Baso % (Auto) 0.5 (0-2) % Lymph # (Auto) 2.5 (1.2-4.9) X10*3/uL Schleicher # (Auto) 1.0 (0.1-1.2) X10*3/uL Eos # (Auto) 0.3 (0.0-0.4) X10*3/uL Baso # (Auto) 0.1 (0.0-0.2) X10*3/uL Abs Immat Gran (auto) 0.04 H (0.00-0.03) X10*3/uL Absolute Neuts (auto) 6.0 (2.0-8.3) x10*3/uL Absolute Nucleated RBC 0.000 (0.0-0.012) X10*3/uL Nucleated RBC % (auto) 0.0 (0.0-0.2) /100WBC Sodium 142 (135-145) mmol/L Potassium 4.0 (3.3-5.1) mmol/L Chloride 108 (96-108) mmol/L Carbon Dioxide 26 (22-29) mmol/L Anion Gap 12 (12-20) BUN 11 (9-16) mg/dL Creatinine 0.98 (0.5-1.4) mg/dL Estim Creat Clear Calc 123.4 Estimated GFR > 60 Random Glucose 85 (60-115) mg/dL Calcium 9.4 (8.4-10.2) mg/dL Magnesium 2.1 (1.6-2.6) mg/dL Total Bilirubin 0.4 (0.0-1.0) mg/dL AST 26 (5-37) U/L ALT 25 (0-40) U/L Alkaline Phosphatase 94 (39-117) U/L Troponin I High Sens < 2.7 (<3.5-35.0) ng/L Total Protein 7.4 (6.5-8.0) g/dL Albumin 4.6 (3.5-5.0) g/dL Influenza Type A (PCR) NEGATIVE (Negative) Influenza Type B (PCR) NEGATIVE (Negative) RSV RNA Qual (PCR) NEGATIVE (Negative) SARS-CoV-2 RNA (RT-PCR) NEGATIVE (Negative) Independent Interpretation I performed an independent interpretation of an: EKG (Normal sinus rhythm, 78 beats per minute, normal AK interval and QTC) and Plain X-Ray Interpretation: Chest x-ray is without evidence of cardiomegaly, pneumothorax, pneumonia Radiology Impression Discussion of test interpretation with radiology: I have reviewed the radiologist's reading. Radiologist Impression: 2 view chest x-ray Comparison: CR/SR - XR CHEST 1 VIEW - 08/17/25 15:02 EST Findings: Heart size is normal. No acute fracture. IMPRESSION: 1. No acute findings. External Record Review External record reviewed: Inpatient record, Office record and Outpatient record Discharge Plan Discharge Clinical Impression: Atypical chest pain, Dizziness, Lightheadedness Patient Disposition: Home, Self-Care Instructions: Chest Pain (DC), Lightheadedness (ED), Dizziness (ED), Noncardiac Chest Pain (ED), Chest Wall Pain (ED) Additional Instructions: You were evaluated in the emergency department today for chest pain, dizziness, and lightheadedness. Your evaluation has shown no signs of medical conditions requiring emergent intervention at this time, however we recommend that you follow-up with a car rental agency manager for further testing as an outpatient. Please schedule an appointment for follow-up with your primary care physician this week as well. Return to the emergency department if you experience worsening or uncontrolled chest pain, shortness of breath, lightheadedness, feeling faint, loss of consciousness, nausea, vomiting, or any other concerning symptoms. Prescriptions: No Action hydroxyzine pamoate 25 mg capsule 25 mg PO TID PRN (Reason: anxiety) Qty: 30 0RF ciprofloxacin-dexamethasone 0.3-0.1 % drops,suspension 4 drp otic (ears) Q12H 7 Days Qty: 7.5 0RF amoxicillin-pot clavulanate 875-125 mg tablet 1 tab PO Q12H 7 Days Qty: 14 0RF cyclobenzaprine 5 mg tablet 5 mg PO TID PRN (Reason: muscle spasm) 7 Days Qty: 21 0RF omeprazole 20 mg capsule,delayed release(DR/EC) 20 mg PO DAILY 30 Days Qty: 30 0RF ondansetron 4 mg tablet,disintegrating 4 mg PO Q6-8H PRN (Reason: nausea and vomiting) Qty: 14 0RF hydroxyzine HCl 25 mg tablet 25 mg PO TID PRN (Reason: anxiety) Qty: 30 0RF Ref[place]: [facility] [place] Group] - 1 week Clinical Impression: Dizziness; Lightheadedness; Atypical chest pain [facility] [place], [facility] Medicine] Referral Note: no current pcp Print Language: [place]
[2025-09-04 15:58] LABS: MANUAL DIFF FLAG NO
[2025-09-04 16:03] LABS: Hematocrit 49.1 % (42.0-52.0); Hemoglobin 16.9 g/dl (14.0-18.0); Imm Gran Abs Auto 0.04 X10*3/uL (0.00-0.03); Imm Gran Pct Auto 0.4 % (0.0-0.4); Lymphocytes Absolute Auto 2.5 X10*3/uL (1.2-4.9); Mean Corpuscular HGB Conc 34.4 g/dl (31.0-36.0); Mean Corpuscular Hemoglobin 28.9 pg (27.0-33.0); Mean Corpuscular Volume 84.1 fL (80.0-98.0); NRBC Abs Auto 0.000 X10*3/uL (0.0-0.012); NRBC Pct Auto 0.0 /100WBC (0.0-0.2); Platelet Count 239 X10*3/uL (160-400); Red Blood Count 5.84 X10*6/uL (4.60-5.80); White Blood Count 9.8 X10*3/uL (4.8-10.8)
[2025-09-04 16:16] LABS: Alanine Aminotransferase 25 U/L (0-40); Albumin Level 4.6 g/dL (3.5-5.0); Alkaline Phosphatase 94 U/L (39-117); Anion Gap 12 (12-20); Aspartate Amino Transferase 26 U/L (5-37); Blood Urea Nitrogen 11 mg/dL (9-16); Calcium 9.4 mg/dL (8.4-10.2); Carbon Dioxide 26 mmol/L (22-29); Chloride 108 mmol/L (96-108); Creatinine Clr Calc Pharmacy 123.4; Estimated Glomerular Filt Rate > 60; Magnesium 2.1 mg/dL (1.6-2.6); Potassium 4.0 mmol/L (3.3-5.1); Sodium 142 mmol/L (135-145); Total Protein 7.4 g/dL (6.5-8.0)
[2025-09-04 16:30] LABS: Troponin-I High Sensitivity < 2.7 ng/L (<3.5-35.0)
[2025-09-04 16:38] LABS: Resp Syncy Virus RNA Qual PCR NEGATIVE (Negative); SARS COV2 PCR INHOUSE NEGATIVE (Negative)
[2025-09-04 17:05] VITALS: BP 131/86; PULSE 77; RESP 16; TEMP 36.6; O2SAT 95
--- OUTSIDE RECORDS SUMMARY | 2025-09-04 17:29 | XMS_ITS | Data Portability ---
Author Organization FRANK Mathew s, [address] Address [address] [place] [address] Care Team Providers Care Online Content Developer Name Role Phone [facility] Primary Care Provider Assessment No assessment recorded. Plan of Treatment Reminders Order Date Submit Date Provider Last Modified By Organization Details Last Modified Time Details Appointments None recorded. Lab rapid strep group A, throat 2022 023 [email or web address] [facility], [address] [place], [address], 3 10:43:28 streptococc us group A, culture, throat 2022 023 [facility], [address] [place] [address], [address], 3 16:07:11 rapid SARS CoV 2 Ag, QL IA, respiratory specimen [address] [facility], [address] [place], [address], 2 16:02:43 SARS CoV 2 RNA (COVID-19), QL, digester hand-PCR, respiratory specimen 2021 022 [facility], [address] [place] [address], [address], 2 22:06:00 Referral None recorded. Procedures None recorded. Surgeries None recorded. Imaging XR, chest, 2 view 2021 022 [email or web address] 0 [facility], [address] [place], [address], 2 16:09:00 Medication Orders doxycycline hyclate 100 mg capsule 2023 024 [facility]armacy #0488, [address] [place], [address], 4 13:05:49 fluticasone propionate 50 mcg/actuati on nasal spray,suspe nsion 2023 024 [facility]armacy #0488, [address] [place], [address], 4 18:48:09 amoxicillin 875 mg tablet 2023 024 [facility]/Pharmacy #0488, [address] [place], [address], 4 12:53:25 amoxicillin 875 mg tablet [address]/Pharmacy #0693, [address] [place], [address], 4 12:53:22 ibuprofen 800 mg tablet 2022 024 [facility]/Pharmacy #0693, [address] [place], [address], 4 12:57:31 amoxicillin 875 mg-potassiu m clavulanate 125 mg tablet 2022 023 [facility]/Pharmacy #0488, [address] [place], [address], 4 18:43:16 prednisone 20 mg tablet 2022 023 [email or web address] [facility]/Pharmacy #0488, [address] [place], [address], 4 12:53:33 prednisone 10 mg tablet 2021 023 [facility]/Pharmacy #0488, [address] [facility] [place], [address], 4 18:43:32 albuterol sulfate HFA 90 mcg/actuati on aerosol inhaler 2021 023 [facility]/Pharmacy #0488, [address] [facility] [place], [address], 3 17:33:06 Patient TargetsNo targets recorded. Patient Instructions Encounter Date Encounter Id Patient Instructions Last Modified By Organization Details Last Modified Time 10/03/2022 [id number] cough: care instructions Not available 10/03/2022 15:24:17 [...] Emergency Department. Not available 10/03/2022 15:24:47 06/01/2023 [id number] sore throat: car e instructions [email or web address] Not available 06/01/2023 10:43:26 08/27/2023 [id number] Based on your presentation and exam, you [...] to your eye. Thank you for using [facility] today, please feel free to contact our office if you have any questions or concerns. Not available 08/27/2023 18:20:37 05/19/2024 [id number] Apply a warm compress to the affected [...] e alisson cteri stics deter mined by [employer] [place] [facility] [employer] atori es. Nucle ic acid [...] in this assay . Not Available [facility] ([facility]) [address] [place], [address], 10/04/2022 22:06:00 10/03/20 22 10/04/2022 SARS- COV-2 , TYRELL sars-cov-2, TYRELL 2 day tat PERFOR MED Not Available [facility] ([facility]) [address] [place], [address], 10/04/2022 22:06:00 10/03/20 22 10/03/2022 rapid SARS CoV 2 Ag, QL IA, respi rator y speci men Unknown Analyte Normal =Negat khris Not Available [address], [address], 10/03/2022 15:47:20 10/03/20 22 10/03/2022 rapid SARS CoV 2 Ag, QL IA, respi rator y speci men Unknown Analyte negati ve Not Available [address], [address], 10/03/2022 15:47:20 06/01/20 23 06/04/2023 BETA STREP GP A CULTU RE beta strep gp A culture NEGATI VE Refer ence Range : Negat khris Not Available [facility] ([facility]) [address] [facility], [place], [address], 06/04/2023 16:07:11 06/01/20 23 06/01/2023 rapid strep group A, throa t Unknown Analyte negati ve Not Available _[facility] [address] [place], [address], 06/01/2023 10:05:09 06/01/20 23 06/01/2023 rapid strep group A, throa t Unknown Analyte normal Not Available 2099_ [facility] [address] [place], [address], 06/01/2023 10:05:09 06/01/20 23 06/01/2023 rapid strep group A, throa t Unknown Analyte yes Not Available [facility] [address] [place], [address], 06/01/2023 10:05:09 10/03/20 22 10/03/2022 XR, chest , 2 view No observ ation record ed. [facility] [address] [place], [address], 10/03/2022 17:52:54 10/03/20 22 10/03/2022 XR, chest , 2 view No observ ation record ed. [facility] [address] [place], [address], 10/03/2022 19:48:36 Result Notes None recorded. Problems Name Problem SNOMED Code Status Onset Date Resolution Date Notes Provider Name and Address Organization Details Recorded Time Asthma 256726990 Active 022 Not Available [facility] 07/28/2023 15:38:23 [...] Name and Address Organization Details Recorded Time 22793 Tylenol medicatio n Not available Not available Not available 10/03/202216135 3 RxNorm BRENTON BANDA skylar, [place] - [facility] 15:05:03 81691 house dust allergeni c extract environme nt,medica tion Not available Not available Not available 10/03/2022 29003 9 RxNorm BRENTON BANDA skylar, PA - [...] propionate 50 mcg/actuati on nasal spray,suspe nsion [place] 2 sprays every day by intranasa l [...] mass index (BMI) Body weight Oxygen saturation Heart rate Respiratory rate Body temperature Systolic And Diastolic Provider Name and Address Organization Details Last Updated DateTime 4 172.72 cm 36.9 kg/m2 122788. 15 g 99 % 103 /min 18 /min 98.9 [degF] 129/85 mm[Hg] Linette Lopez PA - [facility] 4 18:42:35 Date Recorded Body height Body mass index (BMI) Body weight Body temperature Respiratory rate Pain severity - 0-10 verbal numeric rating [Score] - Reported Oxygen saturation Heart rate Systolic And Diastolic Provider Name and Address Organization Details Last Updated DateTime 4 172.72 cm 36.8 kg/m2 843073. 35 g 98.8 [degF] 18 /min 6 98 % 82 /min 131/74 mm[Hg] Alicia Morrell PA - [facility] 4 13:01:00 Date Recorded Body height Body mass index (BMI) Body weight Pain severity - 0-10 verbal numeric rating [Score] - Reported Oxygen saturation Heart rate Respiratory rate Body temperature Systolic And Diastolic Provider Name and Address Organization Details Last Updated DateTime 3 172.72 cm 38 kg/m2 744411. 09 g 10 98 % 75 /min 20 /min 98.1 [degF] 146/91 mm[Hg] Nataly Marrero PA - [facility] 3 10:06:24 Date Recorded Body height Body mass index (BMI) Body weight Pain severity - 0-10 verbal numeric rating [Score] - Reported Oxygen saturation Heart rate Respiratory rate Body temperature Systolic And Diastolic Provider Name and Address Organization Details Last Updated DateTime 3 172.72 cm 35 kg/m2 480993. 25 g 10 99 % 76 /min 18 /min 97.7 [degF] 132/66 mm[Hg] Lenora Rod PA - [facility] 3 17:34:19 Date Recorded Body height Body mass index (BMI) Body weight Body temperature Oxygen saturation Heart rate Respiratory rate Systolic And Diastolic Provider Name and Address Organization Details Last Updated DateTime 2 172.72 cm 38 kg/m2 171538. 09 g 98.4 [degF] 96 % 97 /min 18 /min 120/81 mm[Hg] BRENTON BANDA PA - [facility] 2 15:10:07 Social History Question Answer Notes LastModified by Doctolib ion Details LastModified Time Tobacco Smoking Status Never Smoker BRENTON cheng, PA - [facility] 10/03/2022 15:07:02 Have [...] 06/01/2023 Have You Recently Traveled Abroad? No [email or web address] Information not available 10/03/2022 Are You Currently In School? No Information not available 03/12/2024 Sex: Unknown Functional Status Question Answer Note LastModified by Organizat ion Details LastModified Time Do you use any illicit or recreational drugs? No [email or web address] Information not available 10/03/2022 Do you or have you ever used any other forms of tobacco or nicotine? No [email or web address] Information not available 10/03/2022 What is your level of alcohol consumption? None Information not available 05/19/2024 Are you currently employed? Yes Information not available 03/12/2024 Mental Status None recorded. Family History Relationship Description Onset Age of this Age Resolved Age Notes LastModified by Organization Details LastModified Time Unspecified Relation Hypercholest erolemia [email or web address] Not available 2021 15:06:16 Unspecified Relation Hypertensive disorder [email or web address] Not available 2021 15:06:24 Unspecified Relation Diabetes mellitus [email or web address] Not available 2021 15:06:33 Medical History No medical history recorded. Immunizations Vaccine Type Date Status Note Provider Nam e and Address Organization Details Recorded Time Tdap 12/03/2021 completed FRANK Maldonado - [facility] 06/01/2023 10:04:30 Past Encounters Encounter ID Performer Location Encounter Start Date Encounter Closed Date Diagnosis/Indication Diagnosis SNOMED-CT Code Diagnosis ICD10 Code Diagnosis IMO Codes Diagnosis Note [id number] [address] [address] [address] 12/26/2021 18:58:49 12/26/2021 19:34:29 [id number] [address] [place] [address] 04/17/2022 11:45:36 04/17/2022 13:07:33 [id number] [address] [place] [address] 02/08/2021 16:01:09 02/08/2021 17:03:00 [id number] [address] [place] [address] 02/04/2021 14:37:44 02/04/2021 16:33:28 [id number] [address] [facility] GRACIELA Torres [address] 11/14/2021 14:50:11 11/14/2021 16:38:25 [id number] [place] [address] [facility] [place] [address] 10/03/2022 13:37:54 10/03/2022 16:09:00 Cough 66123589 R05.9 [id number] [place] [address] [place] [address] 06/01/2023 09:22:49 06/01/2023 10:47:47 Acute pharyngitis 171473442 J02.9 Based on your Presentati on, Exam, [...] stomach irritation . Thank you for using [facility] today, please feel free to contact our office if you have any questions or concerns. [id number] FRANK WEBB [address] [place] [address] 08/27/2023 17:01:13 08/27/2023 18:23:12 Toothache 84021830 K08.89 [id number] FRANK CANTRELL [address] [place] [address] 03/12/2024 18:33:40 03/12/2024 18:49:11 Acute serous otitis media of bilateral ears [id number] 547423 H65.03 You have fluid in your middle [...] sent in an antibiotic for you to peanut picker if your symptoms are worsening over the next 24 hrs. You should start taking those antibiotic s if your ear pain is worsening or you start to have fevers. [id number] FRANK CANTRELL [address] [place] [address] 05/19/2024 12:48:40 05/19/2024 13:07:34 Abscess of groin 57019979 L02.214 Based on exam and presentati on [...] swelling4. Increased Redness Thank you for using [facility] today, please feel free to contact our office if you have any questions or concerns. Health Concerns Section Related Observation LastModified by Organization Detai ls LastModified Time None Recorded Concern Status LastModified by Organization Details LastModified Time None Recorded Advance Directives Directive None Recorded Payers Insurance Date Sequence Insurance Name Policy Number Policy Gupta Covered Member ID Gupta Member ID Guarantor Name 05/19/2024 1 [facility] (MEDICAID REPLACEMENT - HMO) [id number] Jean Claude Barriga [id number] Jean Claude Barriga 05/19/2024 2 [facility] Jean Claude Barriga [id number] Jean Claude Barriga 05/19/2024 2 [place]: [facility] Jean Claude Barriga [id number] Jean Claude Barriga 05/19/2024 1 [facility] [id number] Jean Claude Z Barriga [id number] Jean Claude Barriga Notes Date Note Type [...] known covid exposure. Yola Davenport MD [address] [place], [address], [place] [facility] 10/03/2022 17:05:24 3 text/html Sore throatReported [...] Celina Stephens MD [address] [place], [address], PA - [facility] 06/01/2023 10:44:50 3 text/html Ear Pain Brief HPIReported by [email or web address] y.o male was seen at Dentist today. Due to exam, patient was advised he'll need wisdom teeth extraction but doesn't have appt until OCT. He was supposed to get meds but didn't. Now has bilateral upper jaw pain from exam. Pt denies sweling or fever. Pt speaking normal. FRANK WEBB [address] [place], [address], PA - [facility] 08/28/2023 08:33:29 4 text/html 23 y/o male with congestion, cough, ear pressure for the past 2 days. Used Dayquil once without improvement. Got ear infections a lot as a kid FRANK Plunkett [address] [place], [address], PA - [facility] 03/12/2024 18:51:51 4 text/html 23 y/o male here with draining, painful lump to his L groin for 3 days, popped it last night in the shower, lots of pus and blood, feeling a bit better now, but still draining and sore FRANK Plunkett [address] [place], [address], PA - [facility] 05/19/2024 13:08:12
--- OUTSIDE RECORDS SUMMARY | 2025-09-04 17:29 | XMS_ITS | Clinical Summary ---
Author Organization [facility] Address [address] [place] [address] Phone Care Team Providers Care Area Operations Director Name Role Phone Physician, No Pcp Primary Care Provider Unavaila ble Allergies Active Allergy Reactions Criticality Noted Date Comments Acetaminophen 08/15/2025 Medications No known medications Encounters Date Type Department Care Team Description 08/15/2025 10:09 PM EST - 08/15/2025 10:14 PM EST Emergency [facility] Emergency [address] [place] [address] Chest pain of unknown etiology [...] Signed Date: 08/16/2025 07:30 ET Workstation ID: [id number] Transcribed By: Self Edit Transcribed Date: 08/16/2025 [...] Signed Date: 08/16/2025 07:30 ET Workstation ID: [id number] Transcribed By: Self Edit Transcribed Date: 08/16/2025 07:28 ET Emelyn MARIE IMG XR PROCEDURES Final Result * Troponin I high sensitivity (08/15/2025 7:43 PM EST) [facility] High Sensitivity Troponin I 3 <=79 ng/L LAB CHEMISTRY METHOD 08/15/2025 8:38 PM EST [facility] Blood Venous blood specimen / Unknown Venipuncture / Unknown 08/15/2025 7:43 PM EST 08/15/2025 8:06 PM EST Narrative [facility] - 08/15/2025 8:38 PM EST High levels of biotin in samples may falsely decrease hsTroponin values. Use caution when interpreting hsTroponin results in patients taking biotin who exhibit renal impairment (eGFR <60) or in patients taking more than 20 mg/day of biotin. Emelyn MARIE LAB BLOOD ORDERABLES Final Res ult [facility] [address] [place] [address], [place] [phone] * (ABNORMAL) CBC auto differential (08/15/2025 7:43 PM EST) [facility] WBC 12.4(H) 4.8 - 10.8 K/[facility] LAB HEMETOLOGY METHOD 08/15/2025 8:14 PM EST [facility] RBC 6.00(H) 4.50 - 5.50 M/[facility] LAB HEMETOLOGY METHOD 08/15/2025 8:14 PM [...] LAB HEMETOLOGY METHOD 08/15/2025 8:14 PM EST [facility] Eosinophils Relative 3.0 % LAB [...] LAB HEMETOLOGY METHOD 08/15/2025 8:14 PM EST [facility] Eosinophils Absolute 0.37 0.00 - [...] MARIE LAB BLOOD ORDERABLES Final Res ult [facility] [address] [place] [address], [place] [phone] * Magnesium (08/15/2025 7:43 PM EST) Pathologist [facility] Magnesium 2.3 1.9 - 2.6 mg/dL LAB CHEMISTRY METHOD 08/15/2025 8:38 PM EST [facility] Blood Venous blood specimen / Unknown Venipuncture / Unknown 08/15/2025 7:43 PM EST 08/15/2025 8:05 PM EST Emelyn MARIE LAB BLOOD ORDERABLES Final Res ult Performing Organization Address City/[facility]/ZIP Co de Phone Number [facility] [address] [place] [address], [place] [phone] * Lipase (08/15/2025 7:43 PM EST) [facility] Lipase 31 13 - 75 unit/L LAB CHEMISTRY METHOD 08/15/2025 8:38 PM EST [facility] Blood Venous blood specimen / Unknown Venipuncture / Unknown 08/15/2025 7:43 PM EST 08/15/2025 8:05 PM EST Emelyn MARIE LAB BLOOD ORDERABLES Final Res ult [facility] [address] [place] [address], [place] [phone] * Comprehensive metabolic panel (08/15/2025 7:43 PM EST) Pathologist [facility] Sodium 138 133 - 145 mmol/L LAB CHEMISTRY METHOD 08/15/2025 8:38 PM EST [facility] Potassium 4.0 3.5 - 5.5 mmol/L LAB CHEMISTRY METHOD 08/15/2025 8:38 PM EST [facility] Chloride 103 96 - 110 mmol/L LAB CHEMISTRY METHOD 08/15/2025 8:38 PM EST [facility] CO2 32 21 - 32 [...] LAB CHEMISTRY METHOD 08/15/2025 8:38 PM EST [facility] Blood Venous blood specimen / Unknown Venipuncture / Unknown 08/15/2025 7:43 PM EST 08/15/2025 8:05 PM EST Emelyn MARIE LAB BLOOD ORDERABLES Final Res ult Performing Organization Address City/[facility]/ZIP Co de Phone Number [facility] [address] [place] [address], [place] [phone] * ECG 12 lead (08/15/2025 5:14 PM EST) Ventricular Rate ECG 61 BPM GEMUSE Atrial Rate 61 BPM GEMUSE P-R Interval 150 ms GEMUSE QRS Duration 84 ms GEMUSE Q-T Interval 358 ms GEMUSE QTc 360 ms GEMUSE P Wave Vivian 46 degrees GEMUSE R Vivian 10 degrees GEMUSE T Vivian 34 degrees GEMUSE ECG Interpretation Normal sinus rhythm with sinus arrhythmia Normal ECG When compared with ECG of 31-JAN-2012 00:45, PREVIOUS ECG IS PRESENT Confirmed by Gray KRISHNA YUFENG ([id number]) on 08/15/2025 8:12:15 PM GEMUSE 08/15/2025 5:14 PM EST 08/15/2025 8:12 PM EST Emelyn MARIE ECG ORDERABLES Final Result Performing Organization Address City/[facility]/ZIP Co de Phone Number GEMUSE from Last 3 Months Insurance MEDICAID - [place] Care Teams Area Operations Director Relationship Specialty Start Date End Date Physician, No Pcp PCP - General 08/15/25
[2025-09-04 18:23] VITALS: BP 129/62; PULSE 55; RESP 16; TEMP 37.1; O2SAT 96
== END 2025-09-04 18:24 | disposition home or self-care (01) ==
PROVIDERS: Physician Assistant Medical; Emergency Provider Emergency Medicine
DX: R07.89 Other chest pain (principal); R42 Dizziness and giddiness; Z88.6 Allergy status to analgesic agent
CPT/HCPCS: 71046; 80053; 83735; 84484; 85025; 87637; 93005; 99283; 99285

== ENCOUNTER → 2025-09-04 14:51 | Outpatient (BNV) | payer OTHER, SELFPAY | PROVIDERS: Emergency Provider Emergency Medicine; Visit Provider Internal Medicine Cardiovascular Disease | DX: R07.9 Chest pain, unspecified (principal); R42 Dizziness and giddiness | CPT/HCPCS: 93010 ==

== ENCOUNTER → 2025-09-04 15:18 | Outpatient (BNV) | payer OTHER, SELFPAY | PROVIDERS: Emergency Provider Emergency Medicine; Visit Provider Specialist | DX: R42 Dizziness and giddiness (principal) | CPT/HCPCS: 71046 ==

== ENCOUNTER 2025-09-14 22:56 | Emergency (ER) | payer OTHER, SELFPAY ==
--- NOTE | 2025-09-14 | ECG_ITS ---
Test Reason : CHEST PAIN Blood Pressure : */* mmHG Vent. Rate : 60 BPM Atrial Rate : 60 BPM P-R Int : 148 ms QRS Dur : 82 ms QT Int : 368 ms P-R-T Axes : 40 2 38 degrees QTcB Int : 368 ms Normal sinus rhythm with sinus arrhythmia Normal ECG When compared with ECG of 04-Sep-2025 15:01, No significant change was found Referred By: Generic ED Physician Electronically Signed By: COLEEN PIEDRA
--- NOTE | ~2025-09-14 | XR_ITS ---
CLINICAL HISTORY: chest pain 1 view chest x-ray Comparison: CR - XR CHEST 2V - 09/04/25 16:13 EST Findings: The lungs are clear. Normal size heart. No acute fracture. IMPRESSION: 1. No acute findings. This document has been electronically signed by: Marcello Gill MD on 09/14/2025 23:28:05
--- NOTE | ~2025-09-14 | XR_ITS ---
CLINICAL HISTORY: pain constipation Exam: Supine abdominal radiograph. Comparison: Chest x-ray from September 14, 2025. Findings: Moderate stool throughout the colon. No dilated large or small bowel. Mild gaseous distention of the stomach. No indirect evidence for free air on this supine exam. No focal bony lesions. Impression: Moderate colonic stool without findings of obstruction. This document has been electronically signed by: Marcello Gill MD on 09/15/2025 01:42:47
[2025-09-14 23:05] VITALS: BP 124/71; PULSE 56; RESP 18; TEMP 36.8; O2SAT 96; BMI 38.0
[2025-09-14 23:14] LABS: MANUAL DIFF FLAG NO
[2025-09-14 23:16] LABS: Hematocrit 48.2 % (42.0-52.0); Hemoglobin 16.4 g/dl (14.0-18.0); Imm Gran Abs Auto 0.02 X10*3/uL (0.00-0.03); Imm Gran Pct Auto 0.2 % (0.0-0.4); Lymphocytes Absolute Auto 3.9 X10*3/uL (1.2-4.9); Mean Corpuscular HGB Conc 34.0 g/dl (31.0-36.0); Mean Corpuscular Hemoglobin 28.3 pg (27.0-33.0); Mean Corpuscular Volume 83.2 fL (80.0-98.0); NRBC Abs Auto 0.000 X10*3/uL (0.0-0.012); NRBC Pct Auto 0.0 /100WBC (0.0-0.2); Platelet Count 240 X10*3/uL (160-400); Red Blood Count 5.79 X10*6/uL (4.60-5.80); White Blood Count 11.7 X10*3/uL (4.8-10.8)
[2025-09-14 23:28] LABS: Alanine Aminotransferase 25 U/L (0-40); Albumin Level 4.5 g/dL (3.5-5.0); Alkaline Phosphatase 99 U/L (39-117); Anion Gap 12 (12-20); Aspartate Amino Transferase 23 U/L (5-37); Blood Urea Nitrogen 18 mg/dL (9-16); Calcium 9.4 mg/dL (8.4-10.2); Carbon Dioxide 26 mmol/L (22-29); Chloride 108 mmol/L (96-108); Creatinine Clr Calc Pharmacy 145.5; Estimated Glomerular Filt Rate > 60; Potassium 3.8 mmol/L (3.3-5.1); Sodium 142 mmol/L (135-145); Total Protein 7.2 g/dL (6.5-8.0)
[2025-09-14 23:37] LABS: Troponin-I High Sensitivity < 2.7 ng/L (<3.5-35.0)
--- OUTSIDE RECORDS SUMMARY | 2025-09-15 00:17 | XMS_ITS | Data Portability ---
Author Organization FRANK Mathew s, [address] Address [address] [place] [address] Care Team Providers Care Events Traffic Controller Name Role Phone [facility] Primary Care Provider Assessment No assessment recorded. Plan of Treatment Reminders Order Date Submit Date Provider Last Modified By Organization Details Last Modified Time Details Appointments None recorded. Lab rapid strep group A, throat 2022 023 [email or web address] _[facility], [address] [place], [address], 3 10:43:28 streptococc us group A, culture, throat 2022 023 [facility], [address] [place] [address], [address], 3 16:07:11 rapid SARS CoV 2 Ag, QL IA, respiratory specimen 2021 022 [facility], [address] [place], [address], 2 16:02:43 SARS CoV 2 RNA (COVID-19), QL, food checkers and cashiers supervisor-PCR, respiratory specimen 2021 022 [facility], [address] [place] [address], [address], 2 22:06:00 Referral None recorded. Procedures None recorded. Surgeries None recorded. Imaging XR, chest, 2 view 2021 022 [email or web address] 0 [facility], [address] [place], [address], 2 16:09:00 Medication Orders doxycycline hyclate 100 mg capsule 2023 024 [facility]armacy #0488, [address] [place], [address], 4 13:05:49 fluticasone propionate 50 mcg/actuati on nasal spray,suspe nsion 2023 024 [facility] #0488, [address] [place], [address], 4 18:48:09 amoxicillin 875 mg tablet 2023 024 [facility]acy #0488, [address] [place], [address], 4 12:53:25 amoxicillin 875 mg tablet [address]/Pharmacy #0693, [address] [place], [address], 4 12:53:22 ibuprofen 800 mg tablet 2022 024 [facility]acy #0693, [address] [place], [address], 4 12:57:31 amoxicillin 875 mg-potassiu m clavulanate 125 mg tablet 2022 023 [facility]/Pharmacy #0488, [address] [place], [address], 4 18:43:16 prednisone 20 mg tablet 2022 023 [email or web address] [facility]armacy #0488, [address] [place], [address], 4 12:53:33 prednisone 10 mg tablet 2021 023 [facility] #0488, [address] [facility] [place], [address], 4 18:43:32 albuterol sulfate HFA 90 mcg/actuati on aerosol inhaler 2021 023 NINA [facility]armacy #0488, [address] [facility] [place], [address], 3 17:33:06 Patient TargetsNo targets recorded. Patient Instructions Encounter Date Encounter Id Patient Instructions Last Modified By Organization Details Last Modified Time 10/03/2022 [id number] cough: care instructions Not available 10/03/2022 15:24:17 [...] Emergency Department. Not available 10/03/2022 15:24:47 06/01/2023 [id number] sore throat: car e instructions [email or web address] Not available 06/01/2023 10:43:26 08/27/2023 [id number] Based on your presentation and exam, you [...] to your eye. Thank you for using [facility] today, please feel free to contact our office if you have any questions or concerns. [email or web address] Not available 08/27/2023 18:20:37 05/19/2024 [id number] Apply a warm compress to the affected [...] e alisson cteri stics deter mined by [employer] rp Labor atori es. Nucle ic acid [...] in this assay . Not Available [facility] ([facility]) [address] [place], [address], 10/04/2022 22:06:00 10/03/20 22 10/04/2022 SARS- COV-2 , TYRELL sars-cov-2, TYRELL 2 day tat PERFOR MED Not Available [facility] ([facility]) [address] [place], [address], 10/04/2022 22:06:00 10/03/20 22 10/03/2022 rapid SARS CoV 2 Ag, QL IA, respi rator y speci men Unknown Analyte Normal =Negat khris Not Available [address], [address], 10/03/2022 15:47:20 10/03/20 22 10/03/2022 rapid SARS CoV 2 Ag, QL IA, respi rator y speci men Unknown Analyte negati ve Not Available [address], [address], 10/03/2022 15:47:20 06/01/20 23 06/04/2023 BETA STREP GP A CULTU RE beta strep gp A culture NEGATI VE Refer ence Range : Negat khris Not Available [facility] ([facility]) [address] [facility], [place], [address], 06/04/2023 16:07:11 06/01/20 23 06/01/2023 rapid strep group A, throa t Unknown Analyte negati ve Not Available _[facility] [address] [place], [address], 06/01/2023 10:05:09 06/01/20 23 06/01/2023 rapid strep group A, throa t Unknown Analyte normal Not Available 2099_ [facility] [address] [place], [address], 06/01/2023 10:05:09 06/01/20 23 06/01/2023 rapid strep group A, throa t Unknown Analyte yes Not Available [facility]99[facility] [address] [place], [address], 06/01/2023 10:05:09 10/03/20 22 10/03/2022 XR, chest , 2 view No observ ation record ed. [facility] [address] [place], [address], 10/03/2022 17:52:54 10/03/20 22 10/03/2022 XR, chest , 2 view No observ ation record ed. [facility] [address] [place], [address], 10/03/2022 19:48:36 Result Notes None recorded. Problems Name Problem SNOMED Code Status Onset Date Resolution Date Notes Provider Name and Address Organization Details Recorded Time Asthma 500694579 Active 022 Not Available [facility] 07/28/2023 15:38:23 [...] Name and Address Organization Details Recorded Time 36481 Tylenol medicatio n Not available Not available Not available 10/03/202224023 3 RxNorm BRENTON BANDA skylar, [place] - [facility] 15:05:03 06206 house dust allergeni c extract environme nt,medica tion Not available Not available Not available 10/03/2022 90274 9 RxNorm BRENTON BANDA skylar, PA - [...] propionate 50 mcg/actuati on nasal spray,suspe nsion Vestal 2 sprays every day by intranasa l [...] Updated DateTime 4 172.72 cm 36.9 kg/m2 478939. 15 g 99 % 103 /min 18 [...] Updated DateTime 4 172.72 cm 36.8 kg/m2 170738. 35 g 98.8 [degF] 18 /min 6 [...] Updated DateTime 3 172.72 cm 38 kg/m2 936298. 09 g 10 98 % 75 /min [...] Updated DateTime 3 172.72 cm 35 kg/m2 051180. 25 g 10 99 % 76 /min 18 /min 97.7 [degF] 132/66 mm[Hg] Lenora Rod PA - [facility] 3 17:34:19 Date Recorded Body height Body mass index (BMI) Body weight Body temperature Oxygen saturation Heart rate Respiratory rate Systolic And Diastolic Provider Name and Address Organization Details Last Updated DateTime 2 172.72 cm 38 kg/m2 374212. 09 g 98.4 [degF] 96 % 97 /min 18 /min 120/81 mm[Hg] BRENTON BANDA PA - [facility] 2 15:10:07 Social History Question Answer Notes LastModified by CRV ion Details LastModified Time Tobacco Smoking Status [...] 06/01/2023 Have You Recently Traveled Abroad? No [email or web address] Information not available 10/03/2022 Are You Currently In School? No Information not available 03/12/2024 Sex: Unknown Functional Status Question Answer Note LastModified by Organizat ion Details LastModified Time Do you use any illicit or recreational drugs? No [email or web address] Information not available 10/03/2022 Do you or have you ever used any other forms of tobacco or nicotine? No [email or web address] Information not available 10/03/2022 What is your level of alcohol consumption? None Information not available 05/19/2024 Are you currently employed? Yes Information not available 03/12/2024 Mental Status None recorded. Family History Relationship Description Onset Age of this Age Resolved Age Notes LastModified by Organization Details LastModified Time Unspecified Relation Hypercholest erolemia [email or web address] Not available 2021 15:06:16 Unspecified Relation Hypertensive disorder [email or web address] Not available 2021 15:06:24 Unspecified Relation Diabetes mellitus [email or web address] Not available 2021 15:06:33 Medical History No medical history recorded. Immunizations Vaccine Type Date Status Note Provider Nam e and Address Organization Details Recorded Time Tdap 12/03/2021 completed FRANK Maldonado - [facility] 06/01/2023 10:04:30 Past Encounters Encounter ID Performer Location Encounter Start Date Encounter Closed Date Diagnosis/Indication Diagnosis SNOMED-CT Code Diagnosis ICD10 Code Diagnosis IMO Codes Diagnosis Note [id number] [address] [address] [address] 12/26/2021 18:58:49 12/26/2021 19:34:29 [id number] [address] [place] [address] 04/17/2022 11:45:36 04/17/2022 13:07:33 [id number] [address] [place] [address] 02/08/2021 16:01:09 02/08/2021 17:03:00 [id number] [address] [place] [address] 02/04/2021 14:37:44 02/04/2021 16:33:28 [id number] [address] [facility] GRACIELA Torres [address] 11/14/2021 14:50:11 11/14/2021 16:38:25 [id number] [place] [address] [facility] [place] [address] 10/03/2022 13:37:54 10/03/2022 16:09:00 Cough [id number] R05.9 [id number] [place] [address] [place] [address] 06/01/2023 09:22:49 06/01/2023 10:47:47 Acute pharyngitis 139793277 J02.9 Based on your Presentati on, Exam, [...] stomach irritation . Thank you for using [facility] today, please feel free to contact our office if you have any questions or concerns. [id number] FRANK WEBB [address] [place] [address] 08/27/2023 17:01:13 08/27/2023 18:23:12 Toothache [id number] K08.89 [id number] FRANK CANTRELL [address] [place] [address] 03/12/2024 18:33:40 03/12/2024 18:49:11 Acute serous otitis media of bilateral ears [id number] 061439 H65.03 You have fluid in your middle [...] sent in an antibiotic for you to knot picker cloth if your symptoms are worsening over the next 24 hrs. You should start taking those antibiotic s if your ear pain is worsening or you start to have fevers. [id number] FRANK CANTRELL [address] [place] [address] 05/19/2024 12:48:40 05/19/2024 13:07:34 Abscess of groin 17741689 L02.214 Based on exam and presentati on [...] swelling4. Increased Redness Thank you for using [facility] today, please feel free to contact our [...] Gupta Member ID Guarantor Name 05/19/2024 1 [facility] (MEDICAID REPLACEMENT - HMO) [id number] Jean Claude Barriga [id number] Jean Claude Barriga 05/19/2024 2 [facility] Jean Claude Barriga [id number] Jean Claude Barriga 05/19/2024 2 [place]: [facility] Jean Claude Barriga [id number] Jean Claude Barriga 05/19/2024 1 [facility] [id number] Jean Claude Z Barriga [id number] Jean Claude Barriga Notes Date Note Type [...] known covid exposure. Yola Davenport MD [address] [place], [address], [place] [facility] 10/03/2022 17:05:24 3 text/html Sore throatReported [...] Celina Stephens MD [address] [place], [address], PA - [facility] 06/01/2023 10:44:50 3 text/html Ear Pain Brief HPIReported by [email or web address] y.o male was seen at Dentist today. Due to exam, patient was advised he'll need wisdom teeth extraction but doesn't have appt until OCT. He was supposed to get meds but didn't. Now has bilateral upper jaw pain from exam. Pt denies sweling or fever. Pt speaking normal. FRANK WEBB [address] [place], [address], PA - [facility] 08/28/2023 08:33:29 4 text/html 23 y/o male with congestion, cough, ear pressure for the past 2 days. Used Dayquil once without improvement. Got ear infections a lot as a kid FRANK Plunkett [address] [place], [address], PA - [facility] 03/12/2024 18:51:51 4 text/html 23 y/o male here with draining, painful lump to his L groin for 3 days, popped it last night in the shower, lots of pus and blood, feeling a bit better now, but still draining and sore FRANK Plunkett [address] [place], [address], PA - [facility] 05/19/2024 13:08:12
--- OUTSIDE RECORDS SUMMARY | 2025-09-15 00:17 | XMS_ITS | Clinical Summary ---
Author Organization [facility] Address [address] [place] [address] Phone Care Team Providers Care Railroad Conductor Name Role Phone Physician, No Pcp Primary Care Provider Unavaila ble Allergies Active Allergy Reactions Criticality Noted Date Comments Acetaminophen 08/15/2025 Medications No known medications Encounters Date Type Department Care Team Description 08/15/2025 10:09 PM EST - 08/15/2025 10:14 PM EST Emergency [facility] Emergency [address] [place] [address] Chest pain of unknown etiology [...] Signed Date: 08/16/2025 07:30 ET Workstation ID: [id number] Transcribed By: Self Edit Transcribed Date: 08/16/2025 [...] Signed Date: 08/16/2025 07:30 ET Workstation ID: [id number] Transcribed By: Self Edit Transcribed Date: 08/16/2025 07:28 ET Emelyn MARIE IMG XR PROCEDURES Final Result * Troponin I high sensitivity (08/15/2025 7:43 PM EST) [facility] High Sensitivity Troponin I 3 <=79 ng/L LAB CHEMISTRY METHOD 08/15/2025 8:38 PM EST [facility] Blood Venous blood specimen / Unknown Venipuncture / Unknown 08/15/2025 7:43 PM EST 08/15/2025 8:06 PM EST Narrative [facility] - 08/15/2025 8:38 PM EST High levels of biotin in samples may falsely decrease hsTroponin values. Use caution when interpreting hsTroponin results in patients taking biotin who exhibit renal impairment (eGFR <60) or in patients taking more than 20 mg/day of biotin. Emelyn MARIE LAB BLOOD ORDERABLES Final Res ult [facility] [address] [place] [address], [place] [phone] * (ABNORMAL) CBC auto differential (08/15/2025 7:43 PM EST) [facility] WBC 12.4(H) 4.8 - 10.8 K/[facility] LAB HEMETOLOGY METHOD 08/15/2025 8:14 PM EST [facility] RBC 6.00(H) 4.50 - 5.50 M/[facility] LAB HEMETOLOGY METHOD 08/15/2025 8:14 PM [facility] Hemoglobin 16.8 13.5 - 17.5 g/dL LAB HEMETOLOGY METHOD 08/15/2025 8:14 PM [facility] Hematocrit 50.6 42.0 - 54.0 % LAB HEMETOLOGY METHOD 08/15/2025 8:14 PM [facility] MCV 84.9 79.0 - 98.0 FL LAB HEMETOLOGY METHOD 08/15/2025 8:14 PM [facility] MCH 28.2 27.0 - 32.0 pcg LAB HEMETOLOGY METHOD 08/15/2025 8:14 PM [facility] MCHC 33.2 32.0 - 37.0 g/dL LAB HEMETOLOGY METHOD 08/15/2025 8:14 PM [facility] RDW 13.2 11.0 - 15.0 % LAB HEMETOLOGY METHOD 08/15/2025 8:14 PM [facility] Platelets 254 130 - 400 K/mcL LAB HEMETOLOGY METHOD 08/15/2025 8:14 PM [facility] MPV 10.0 7.0 - 11.0 FL LAB HEMETOLOGY METHOD 08/15/2025 8:14 PM [facility] NRBC 0.0 <1.0 % LAB HEMETOLOGY METHOD 08/15/2025 8:14 PM [facility] NRBC Absolute 0.00 <0.10 K/mcL LAB HEMETOLOGY METHOD 08/15/2025 8:14 PM [facility] Neutrophils Relative 64.4 % LAB HEMETOLOGY METHOD 08/15/2025 8:14 PM [facility] Lymphocytes Relative 23.1 % LAB HEMETOLOGY METHOD 08/15/2025 8:14 PM [facility] Monocytes Relative 8.6 % LAB HEMETOLOGY METHOD 08/15/2025 8:14 PM EST [facility] Eosinophils Relative 3.0 % LAB HEMETOLOGY METHOD 08/15/2025 8:14 PM [facility] Basophils Relative 0.6 % LAB HEMETOLOGY METHOD 08/15/2025 8:14 PM [facility] Immature Granulocytes Relative 0.3 % LAB HEMETOLOGY METHOD 08/15/2025 8:14 PM [facility] Neutrophils Absolute 7.95(H) 1.50 - 7.00 K/mcL LAB HEMETOLOGY METHOD 08/15/2025 8:14 PM [facility] Lymphocytes Absolute 2.86 1.00 - 5.00 K/mcL LAB HEMETOLOGY METHOD 08/15/2025 8:14 PM [facility] Monocytes Absolute 1.07(H) 0.20 - 1.00 K/mcL LAB HEMETOLOGY METHOD 08/15/2025 8:14 PM EST [facility] Eosinophils Absolute 0.37 0.00 - 0.50 K/mcL LAB HEMETOLOGY METHOD 08/15/2025 8:14 PM [facility] Basophils Absolute 0.08 0.00 - 0.20 K/mcL LAB HEMETOLOGY METHOD 08/15/2025 8:14 PM [facility] Immature Granulocytes Absolute 0.04(H) 0.00 - 0.03 K/mcL LAB HEMETOLOGY METHOD 08/15/2025 8:14 PM [facility] Blood Venous blood specimen / Unknown Venipuncture / Unknown 08/15/2025 7:43 PM EST 08/15/2025 8:06 PM EST us Emelyn MARIE LAB BLOOD ORDERABLES Final Res ult [facility] [address] [place] [address], [place] [phone] * Magnesium (08/15/2025 7:43 PM EST) Pathologist [facility] Magnesium 2.3 1.9 - 2.6 mg/dL LAB CHEMISTRY METHOD 08/15/2025 8:38 PM EST [facility] Blood Venous blood specimen / Unknown Venipuncture / Unknown 08/15/2025 7:43 PM EST 08/15/2025 8:05 PM EST Emelyn MARIE LAB BLOOD ORDERABLES Final Res ult Performing Organization Address City/[facility]/ZIP Co de Phone Number [facility] [address] [place] [address], [place] [phone] * Lipase (08/15/2025 7:43 PM EST) [facility] Lipase 31 13 - 75 unit/L LAB CHEMISTRY METHOD 08/15/2025 8:38 PM EST [facility] Blood Venous blood specimen / Unknown Venipuncture / Unknown 08/15/2025 7:43 PM EST 08/15/2025 8:05 PM EST Emelyn MARIE LAB BLOOD ORDERABLES Final Res ult [facility] [address] [place] [address], [place] [phone] * Comprehensive metabolic panel (08/15/2025 7:43 PM EST) Pathologist [facility] Sodium 138 133 - 145 mmol/L LAB CHEMISTRY METHOD 08/15/2025 8:38 PM EST [facility] Potassium 4.0 3.5 - 5.5 mmol/L LAB CHEMISTRY METHOD 08/15/2025 8:38 PM EST [facility] Chloride 103 96 - 110 mmol/L LAB CHEMISTRY METHOD 08/15/2025 8:38 PM EST [facility] CO2 32 21 - 32 mmol/L LAB CHEMISTRY METHOD 08/15/2025 8:38 PM [facility] Anion Gap 3 3 - 11 LAB CHEMISTRY METHOD 08/15/2025 8:38 PM [facility] Glucose 97 70 - 100 mg/dL LAB CHEMISTRY METHOD 08/15/2025 8:38 PM [facility] BUN 11 5 - 25 mg/dL LAB CHEMISTRY METHOD 08/15/2025 8:38 PM [facility] Creatinine 1.02 0.70 - 1.30 mg/dL LAB CHEMISTRY METHOD 08/15/2025 8:38 PM [facility] eGFR 105 >=60 mL/min/1. 73m2 LAB CHEMISTRY METHOD 08/15/2025 8:38 PM [facility] Comment:Calculation based on the Chronic Kidney Disease Epidemiology Collaboration (CKD-EPI) equation refit without adjustment for race. BUN/Creatinine Ratio 10.8 LAB CHEMISTRY METHOD 08/15/2025 8:38 PM [facility] Calcium 9.5 8.5 - 10.5 mg/dL LAB CHEMISTRY METHOD 08/15/2025 8:38 PM [facility] AST (SGOT) 19 10 - 42 unit/L LAB CHEMISTRY METHOD 08/15/2025 8:38 PM [facility] ALT (SGPT) 31 10 - 60 unit/L LAB CHEMISTRY METHOD 08/15/2025 8:38 PM [facility] Alkaline Phosphatase 96 42 - 121 unit/L LAB CHEMISTRY METHOD 08/15/2025 8:38 PM [facility] Total Protein 7.4 6.0 - 8.0 g/dL LAB CHEMISTRY METHOD 08/15/2025 8:38 PM [facility] Albumin 4.2 3.2 - 5.0 g/dL LAB CHEMISTRY METHOD 08/15/2025 8:38 PM [facility] Total Bilirubin 0.5 0.0 - 1.4 mg/dL LAB CHEMISTRY METHOD 08/15/2025 8:38 PM EST [facility] Blood Venous blood specimen / Unknown Venipuncture / Unknown 08/15/2025 7:43 PM EST 08/15/2025 8:05 PM EST Emelyn MARIE LAB BLOOD ORDERABLES Final Res ult Performing Organization Address City/[facility]/ZIP Co de Phone Number [facility] [address] [place] [address], [place] [phone] * ECG 12 lead (08/15/2025 5:14 PM EST) Ventricular Rate ECG 61 BPM GEMUSE Atrial Rate 61 BPM GEMUSE P-R Interval 150 ms GEMUSE QRS Duration 84 ms GEMUSE Q-T Interval 358 ms GEMUSE QTc 360 ms GEMUSE P Wave [place] 46 degrees GEMUSE R [place] 10 degrees GEMUSE T [place] 34 degrees GEMUSE ECG Interpretation Normal sinus rhythm with sinus arrhythmia Normal ECG When compared with ECG of 31-JAN-2012 00:45, PREVIOUS ECG IS PRESENT Confirmed by Gray KRISHNA YUFENG ([id number]) on 08/15/2025 8:12:15 PM GEMUSE 08/15/2025 5:14 PM EST 08/15/2025 8:12 PM EST Emelyn MARIE ECG ORDERABLES Final Result Performing Organization Address City/[facility]/ZIP Co de Phone Number GEMUSE from Last 3 Months Insurance MEDICAID - [place] Care Teams Railroad Conductor Relationship Specialty Start Date End Date Physician, No Pcp PCP - General 08/15/25
[2025-09-15 00:28] VITALS: BP 113/73; PULSE 66; RESP 15; O2SAT 96
[2025-09-15] MEDS: Sucralfate Oral Suspension 1 GM/10 ML ORAL.SUSP PO (01:05)
--- NOTE | 2025-09-15 02:18 | ED_ITS ---
HPI - Chest Pain General Chief Complaint: Chest Pain Stated Complaint: cp and leftside pain Time Seen by Provider: 09/15/25 00:11 Source: patient Limitations: no limitations History of Present Illness ED Provider: Whit Silva PA-C HPI narrative: 25-year-old male with a history of morbid obesity, with a chronic chest pain, presents with multiple complaints. Patient states he has been having intermittent chest discomfort that migrates over the past 2 weeks. Pain worse with movement of the torso, and triggered with certain sleeping positions. Denies recent cough or cold symptoms or fever. Patient has a an outpatient stress test ordered by his primary care provider. Denies recent activity, heavy lifting or repetitive movements that could have triggered symptoms. In addition, patient complains of reflux symptoms. He is having epigastric discomfort that radiates inch central chest, associated abdominal bloating at times, constipation, excessive eructation. Patient also states he has a excessive gas at times. Denies postprandial pain or nausea vomiting. Related Data Previous Rx's ?Medication ?Instructions ?Recorded cyclobenzaprine 5 mg tablet 5 mg PO TID PRN muscle spa sm 7 03/24/23 days #21 tabs omeprazole 20 mg capsule,delayed 20 mg PO DAILY 30 day s #30 caps 08/22/23 release ondansetron 4 mg disintegrating 4 mg PO Q6-8H PRN naus ea and 08/22/23 tablet vomiting #14 tabs hydroxyzine HCl 25 mg tablet 25 mg PO TID PRN anxiety #30 tabs 06/08/24 amoxicillin 875 mg-potassium 1 tab PO Q12H 7 days #14 tabs 08/17/25 clavulanate 125 mg tablet ciprofloxacin 0.3 %-dexamethasone 4 drp otic (ears) Q1 2H 7 days #7.5 08/17/25 0.1 % ear drops,suspension mL hydroxyzine pamoate 25 mg capsule 25 mg PO TID PRN anx iety #30 caps 08/17/25 sucralfate 1 gram tablet (Carafate) 1 g PO TID PRN ind igestion #20 tabs 09/15/25 Allergies Allergy/AdvReac Type Severity Reaction Status Date / Time acetaminophen (From TYLENOL) Allergy Mild RASH Verified 09/14/25 23:07 Review of Systems 2 Review of Systems: Yes all other systems are reviewed and are negative Constitutional: Constitutional: Denies fatigue and Denies fever(s) Cardiovascular: Cardiovascular: Reports chest pain and Denies dyspnea Respiratory: Respiratory: Denies dyspnea Gastrointestinal: Gastrointestinal: Reports abdominal pain, Reports constipation, Reports dyspepsia, Reports heartburn, Denies diarrhea, Denies nausea and Denies vomiting Endocrine: Endocrine: Denies fatigue [facility] Past Medical History Attestation statement: The following information was validated with the patient. Medical History No known health problems Social History Social History Alcohol intake: never Patient Tobacco Use Status: Never used Tobacco Substance Use Type: Marijuana Physical Exam 2 Vital Signs: Vital Signs: Last Vital Signs Temp 97.7 F 09/15/25 03:06 Pulse 53 09/15/25 03:06 Resp 15 09/15/25 03:06 BP 121/61 09/15/25 03:06 Pulse Ox 98 09/15/25 03:06 O2 Del Method Room Air 09/15/25 03:06 BMI result Body Mass Index 38.0 Const: Other: Alert well-appearing Orientation/consciousness: patient oriented x3 Chest: Other: Pain elicited chest wall with movement and palpation Resp: Effort & Inspection: normal respiratory effort Cardio: Other: Normal peripheral perfusion GI: Other: Abdomen is soft, obese, nontender no guarding with deep palpation Skin: Other: Warm dry no rash Neuro: General: patient oriented x3, gait normal, no focal motor deficits and CN's II-XI intact bilaterally Psych: Other: Cooperative Medications Administered Discontinued Medications Generic Name Dose Route Start Last Admin Trade Name Freq PRN Reason Stop Dose Admin Hydroxyzine HCl 50 mg 09/15/25 00:12 09/15/25 00:47 Hydroxyzine Hcl 50 Mg Tablet PO 09/15/25 00:13 Not Given ONCE ONE Ketorolac Tromethamine 15 mg 09/15/25 00:12 09/15/25 00:47 Ketorolac Tromethamine 15 Mg/Ml Vial IM 09/15/25 00:13 Not Given ONCE ONE Sucralfate 1 gm 09/15/25 00:48 09/15/25 01:05 Sucralfate Oral Suspension 1 Gm/10 Ml Oral.Susp PO 09/15/25 00:49 1 gm ONCE ONE Administration Medical Decision Making Medical Decision Making MDM Narrative: 25-year-old male with a history of morbid obesity, with a chronic chest pain, presents with multiple complaints. Patient states he has been having intermittent chest discomfort that migrates over the past 2 weeks. Pain worse with movement of the torso, and triggered with certain sleeping positions. Denies recent cough or cold symptoms or fever. Patient has a an outpatient stress test ordered by his primary care provider. Denies recent activity, heavy lifting or repetitive movements that could have triggered symptoms. In addition, patient complains of reflux symptoms. He is having epigastric discomfort that radiates inch central chest, associated abdominal bloating at times, constipation, excessive eructation. Patient also states he has a excessive gas at times. Denies postprandial pain or nausea vomiting. Problem: Constipation, chronic chest pain, obesity History: Per patient I have considered the following differential diagnoses: ACS, biliary colic, cholecystitis, gastritis/GERD, constipation, bowel obstruction Plan: In regard to the chest pain, this is chronic, the patient has been seen in our emergency department on multiple occasions, he has also had full assessment at both [facility] and [facility]. Today ACS was considered despite the fact the patient has no risk factors for coronary artery disease, his heart score is 0. Screening labs including cardiac enzymes EKG and chest x-ray obtained. His discomfort is most consistent with chest wall pain. In regard to his abdominal complaint, the patient is likely constipated which is triggering active reflux symptoms. Obtaining a KUB. Thought about biliary colic and cholecystitis, however he is not having postprandial pain or nausea vomiting, in his LFTs are unremarkable. I did perform bedside non formal ultrasound to view the gallbladder, there were no gallstones. I have independently reviewed the following tests: Labs: Slight leukocytosis, no left shift, not anemic, no electrolyte abnormality, troponin less than 2.7 EKG: Normal sinus rhythm, rate of 60 no ischemic changes, QTC 368 Chest x-ray:Findings: The lungs are clear. Normal size heart. No acute fracture. IMPRESSION: 1. No acute findings. KUB:Findings: Moderate stool throughout the colon. No dilated large or small bowel. Mild gaseous distention of the stomach. No indirect evidence for free air on this supine exam. No focal bony lesions. Impression: Moderate colonic stool without findings of obstruction. Differential Diagnosis Differential Diagnoses: The differential diagnosis associated with the presentation includes See [facility] Admission/Observation Consideration of admission/observation: Escalation of care including admission/observation considered Not applicable Lab Data [facility] Lab Attestation statement: I reviewed the patient's lab results. 09/14/25 23:06 09/14/25 23:06 Labs: Lab Results 09/14/25 Range/Units 23:06 WBC 11.7 H (4.8-10.8) X10*3/uL RBC 5.79 (4.60-5.80) X10*6/uL Hgb 16.4 (14.0-18.0) g/dl Hct 48.2 (42.0-52.0) % MCV 83.2 (80.0-98.0) fL MCH 28.3 (27.0-33.0) pg MCHC 34.0 (31.0-36.0) g/dl RDW 12.7 (11.0-16.0) % Plt Count 240 (160-400) X10*3/uL MPV 9.9 (9.4-12.4) fL Immature Gran % (Auto) 0.2 (0.0-0.4) % Neut % (Auto) 53.8 (45-73) % Lymph % (Auto) 33.0 (20-40) % Floyd % (Auto) 8.7 (2-11) % Eos % (Auto) 3.8 (0-4) % Baso % (Auto) 0.5 (0-2) % Lymph # (Auto) 3.9 (1.2-4.9) X10*3/uL Floyd # (Auto) 1.0 (0.1-1.2) X10*3/uL Eos # (Auto) 0.4 (0.0-0.4) X10*3/uL Baso # (Auto) 0.1 (0.0-0.2) X10*3/uL Abs Immat Gran (auto) 0.02 (0.00-0.03) X10*3/uL Absolute Neuts (auto) 6.3 (2.0-8.3) x10*3/uL Absolute Nucleated RBC 0.000 (0.0-0.012) X10*3/uL Nucleated RBC % (auto) 0.0 (0.0-0.2) /100WBC Sodium 142 (135-145) mmol/L Potassium 3.8 (3.3-5.1) mmol/L Chloride 108 (96-108) mmol/L Carbon Dioxide 26 (22-29) mmol/L Anion Gap 12 (12-20) BUN 18 H (9-16) mg/dL Creatinine 0.94 (0.5-1.4) mg/dL Estim Creat Clear Calc 145.5 Estimated GFR > 60 Random Glucose 125 H (60-115) mg/dL Calcium 9.4 (8.4-10.2) mg/dL Total Bilirubin 0.5 (0.0-1.0) mg/dL AST 23 (5-37) U/L ALT 25 (0-40) U/L Alkaline Phosphatase 99 (39-117) U/L Troponin I High Sens < 2.7 (<3.5-35.0) ng/L Total Protein 7.2 (6.5-8.0) g/dL Albumin 4.5 (3.5-5.0) g/dL Independent Interpretation I performed an independent interpretation of an: EKG Radiology Impression Discussion of test interpretation with radiology: I have reviewed the radiologist's reading. Discharge Plan Discharge Clinical Impression: Chest wall pain, GERD (gastroesophageal reflux disease), Constipation Patient Disposition: Home, Self-Care Instructions: Constipation (ED), GERD (Gastroesophageal Reflux Disease) (ED), Chest Wall Pain (ED) Additional Instructions: In regard to your chest discomfort it is consistent with chest wall pain, it is not cardiac in nature. All of your screening labs including a cardiac enzymes were normal, there were no concerning changes on the EKG in the chest x-ray was clear You were found to be constipated, which can cause significant acid reflux symptoms, which you have. Excessive burping and hiccups are signs of acid reflux. In regard to the constipation, purchase [id number] Colace this is a stool softener, take it twice a day. You also need to purchase [id number] MiraLax, take it 4 to 5 times a day, until you begin having multiple large volume bowel movements. Once you clear your current stool burden, use the Colace in the MiraLax daily to help prevent constipation In regard to the acid reflux, do not eat 3 hours before bed. Some common food triggers are fatty greasy food, spicy food, acidic food, caffeine, alcohol, anything carbonated. Eating smaller more frequent meals throughout the day instead of 3 large meals, can also help prevent symptoms. Use the Carafate as needed for upper abdominal discomfort. Continue to follow up with your primary care provider as needed. Prescriptions: New sucralfate [Carafate] 1 gram tablet 1 g PO TID PRN (Reason: indigestion) Qty: 20 0RF No Action hydroxyzine pamoate 25 mg capsule 25 mg PO TID PRN (Reason: anxiety) Qty: 30 0RF ciprofloxacin-dexamethasone 0.3-0.1 % drops,suspension 4 drp otic (ears) Q12H 7 Days Qty: 7.5 0RF amoxicillin-pot clavulanate 875-125 mg tablet 1 tab PO Q12H 7 Days Qty: 14 0RF cyclobenzaprine 5 mg tablet 5 mg PO TID PRN (Reason: muscle spasm) 7 Days Qty: 21 0RF omeprazole 20 mg capsule,delayed release(DR/EC) 20 mg PO DAILY 30 Days Qty: 30 0RF ondansetron 4 mg tablet,disintegrating 4 mg PO Q6-8H PRN (Reason: nausea and vomiting) Qty: 14 0RF hydroxyzine HCl 25 mg tablet 25 mg PO TID PRN (Reason: anxiety) Qty: 30 0RF Interventions: ED Discharge Assessment Last Done: 09/15/25 03:06 Discharge Date/Time: 09/15/25 03:06 Print Language: [place]
[2025-09-15 02:36] VITALS: BP 121/61; PULSE 53; RESP 15; TEMP 36.5; O2SAT 98
[2025-09-15 03:06] VITALS: BP 121/61; PULSE 53; RESP 15; TEMP 36.5; O2SAT 98
== END 2025-09-15 03:06 | disposition home or self-care (01) ==
PROVIDERS: Emergency Provider Emergency Medicine
DX: R07.89 Other chest pain (principal); K21.9 Gastro-esophageal reflux disease without esophagitis; R10.9 Unspecified abdominal pain; K59.00 Constipation, unspecified
CPT/HCPCS: 36415; 71045; 74018; 80053; 84484; 85025; 93005; 99284

== ENCOUNTER → 2025-09-14 23:00 | Outpatient (BNV) | payer OTHER, SELFPAY | PROVIDERS: Emergency Provider Emergency Medicine; Visit Provider Internal Medicine | DX: R07.9 Chest pain, unspecified (principal) | CPT/HCPCS: 93010 ==

== ENCOUNTER → 2025-09-14 23:12 | Outpatient (BNV) | payer OTHER, SELFPAY | PROVIDERS: Emergency Provider Emergency Medicine; Visit Provider Radiology Diagnostic Radiology | DX: R07.89 Other chest pain (principal) | CPT/HCPCS: 71045 ==

== ENCOUNTER → 2025-09-15 00:48 | Outpatient (BNV) | payer OTHER, SELFPAY | PROVIDERS: Emergency Provider Emergency Medicine; Visit Provider Radiology Diagnostic Radiology | DX: K59.00 Constipation, unspecified (principal) | CPT/HCPCS: 74018 ==